=== PATIENT | female | born 1995 | race Caucasian/White ===

== ENCOUNTER → 2017-11-17 | Outpatient (CLI) | payer OTHER ==
--- NOTE | 2017-11-17 15:08 | US ---
EXAMINATION TYPE: US OB >= 14 wk fetus DATE OF EXAM: 11/17/2017 COMPARISON: None CLINICAL HISTORY: 22-year-old female Z36 Confirm Dates TECHNIQUE: Transabdominal (TA) FINDINGS: GESTATIONAL AGE / DATING Physician Established: not established Dates by LMP: (16 weeks/0 days) EDC: 05/04/2018 Dates by First Scan: this is first scan Dates by Current Scan: (16 weeks/0 days) EDC: 05/04/2018 SURVEY IUP: Single PLACENTA: Posterior PREVIA: No Previa STARR: 13.4 cm Normal CERVICAL LENGTH (transabdominal: norm > 3.0cm): 3.4 cm BIOMETRY PRESENTATION: Breech BPD: 3.3 cm 16 weeks / 2 days HC: 12.1 cm 16 weeks / 1 days AC: 10.0 cm 16 weeks / 1 days FL: 1.7 cm 15 weeks / 1 days ESTIMATED WEIGHT IN GRAMS: 129 grams ESTIMATED WEIGHT IN LBS/OZ: 0 lbs. 5 oz. WEIGHT PERCENTAGE BASED ON ESTABLISHED DATES: 18% HC/AC: 1.2 Normal FL/AC: 17% Normal HEART RATE: 156 bpm RHYTHM: Normal Breaker Layer notes: Viable IUP that correlates with LMP. Uterine contraction noted at beginning of sca n subsided by end of scan. IMPRESSION: 1. Single live intrauterine with estimated gestational age 16 weeks 0 days by LMP. Current ultrasound biometry is exactly concordant. EFW at the 18th percentile. 2. Complete survey recommended at 18-20 weeks.
== END | disposition home or self-care (01) ==
LOC: RADUSWWP 14:07
PROVIDERS: ATTEND Obstetrics & Gynecology
DX: Z36.89 Encounter for other specified antenatal screening (principal); Z3A.16 16 weeks gestation of pregnancy
CPT/HCPCS: 76805

== ENCOUNTER 2018-05-04 06:00 | Inpatient (IN) | payer OTHER ==
[2018-05-04] MEDS ORDERED: OXYTOCIN 20 UNITS/1000 ML NS 1,000 ML IV SCH (06:51)
[2018-05-04] MEDS ORDERED: TERBUTALINE 1 MG/ML VIAL SQ PRN (06:51)
[2018-05-04] MEDS ORDERED: CARBOPROST TROMETHAMINE 250 MCG/ML 1 ML AMP IM PRN (06:51)
[2018-05-04] MEDS ORDERED: METHYLERGONOVINE 0.2 MG/ML 1 ML AMP IM PRN (06:51)
[2018-05-04] MEDS ORDERED: OXYTOCIN 10 UNIT/ML 1 ML VIAL IM PRN (06:51)
[2018-05-04] MEDS ORDERED: LIDOCAINE 1% (PF) 10 MG/ML (30 ML SDV) SQ PRN (06:51)
[2018-05-04 06:59] VITALS: BMI 30.4
[2018-05-04] MEDS: LACTATED RINGERS 1,000 ML IV SCH ×2 (06:59→13:09)
[2018-05-04 07:02] LABS: Basophils % (A) 0 %; Eosinophils # (A) 0.2 k/uL (0-0.7); Eosinophils % (A) 2 %; HCT 36.6 % (34.0-46.0); Lymphocytes # (A) 2.7 k/uL (1.0-4.8); Lymphocytes % (A) 28 %; MCH 29.5 pg (25.0-35.0); MCHC 32.7 g/dL (31.0-37.0); MCV 90.4 fL (80.0-100.0); Mean Platelet Volume 9.2; Monocytes # (A) 0.6 k/uL (0-1.0); Monocytes % (A) 6 %; Neutrophils % (A) 62 %; Platelet Count 222 k/uL (150-450); RBC 4.05 m/uL (3.80-5.40); RDW 15.6 % (11.5-15.5); WBC 9.7 k/uL (3.8-10.6)
--- NOTE | 2018-05-04 07:38 | P.HPOB ---
History of Present Illness H&P Date: 05/04/18 Chief Complaint: Induction of Labor 23 year old presents at 40 weeks for induction of labor. HEr cervix is 1-2 /70/-2. She is reji irregularly. heart tones 130-135 with moderate variability and reactive. Review of Systems All systems: negative Constitutional: Denies chills, Denies fever Eyes: denies blurred vision, denies pain Ears, nose, mouth and throat: Denies headache, Denies sore throat Cardiovascular: Denies chest pain, Denies shortness of breath Respiratory: Denies cough Gastrointestinal: Denies abdominal pain, Denies diarrhea, Denies nausea, Denies vomiting Genitourinary: Denies dysuria, Denies hematuria Musculoskeletal: Denies myalgias Integumentary: Denies pruritus, Denies rash Neurological: Denies numbness, Denies weakness Psychiatric: Denies anxiety, Denies depression Endocrine: Denies fatigue, Denies weight change Past Medical History Past Medical History: No Reported History Additional Past Medical History / Comment(s): OB history: first was a vaginal delivery. THis is her second and she had had care with ne since 13 weeks. A+, abs neg, Rub Imm, RPR NR, HIV NR, Hep B neg. normal 1hr. GBS neg. History of Any Multi-Drug Resistant Organisms: None Reported Past Surgical History: Adenoidectomy, Tonsillectomy Past Anesthesia/Blood Transfusion Reactions: No Reported Reaction Past Psychological History: No Psychological Hx Reported Smoking Status: Former smoker Past Alcohol Use History: None Reported Past Drug Use History: None Reported - Past Family History Mother Additional Family Medical History / Comment(s): Depression/Bipolar Father Additional Family Medical History / Comment(s): Schizophrenia Medications and Allergies Allergies Allergy/AdvReac Type Severity Reaction Status Date / Time Penicillins Allergy Rash/Hives Verified 05/04/18 06:51 Sulfa (Sulfonamide Allergy Swelling Verified 05/04/18 06:51 Antibiotics) Exam Osteopathic Statement: *. No significant issues noted on an osteopathic structural exam other than those noted in the History and Physical/Consult. Vital Signs Temp Pulse Resp BP 05/04/18 06:53 96.6 F L 73 16 116/71 Intake and Output 05/03/18 05/04/18 05/04/18 22:59 06:59 14:59 Other: Weight 85.729 kg Heart: Regular rate and rhythm Lungs: Clear to auscultation bilaterally Abdomen: Soft, nontender Extremities: Negative Homans sign Results Result Diagrams: 05/04/18 06:50 Abnormal Lab Results - Last 24 Hours (Table) 05/04/18 Range/Units 06:50 RDW 15.6 H (11.5-15.5) % Assessment and Plan (1) Normal labor Current Visit: Yes Status: Acute Code(s): O80 - ENCOUNTER FOR FULL-TERM UNCOMPLICATED DELIVERY; Z37.9 - OUTCOME OF DELIVERY, UNSPECIFIED SNOMED Code(s ): 42030134 Plan: 1. induction of labor with amniotomy and pitocin
[2018-05-04] MEDS ORDERED: WITCH HAZEL 1 EACH MED..PAD TOPICAL PRN (16:07)
[2018-05-04] MEDS ORDERED: SIMETHICONE 80 MG CHEWABLE PO PRN (16:07)
[2018-05-04] MEDS ORDERED: diphenhydrAMINE 50 MG CAP PO PRN (16:07)
[2018-05-04] MEDS ORDERED: ZOLPIDEM 5 MG TAB PO PRN (16:07)
[2018-05-04] MEDS ORDERED: HYDROCORTISONE 2.5% RECTAL CREAM 30 GM TUBE RECTAL PRN (16:07)
[2018-05-04] MEDS ORDERED: diphenhydrAMINE 50 MG/ML 1 ML VIAL IVP PRN ×2 (16:07)
[2018-05-04] MEDS ORDERED: LANOLIN CREAM 5 GM TUBE TOPICAL PRN (16:07)
[2018-05-04] MEDS ORDERED: diphenhydrAMINE 25 MG CAP PO PRN (16:07)
[2018-05-04] MEDS ORDERED: ACETAMINOPHEN TAB 325 MG TAB PO PRN (16:07)
[2018-05-04] MEDS ORDERED: BENZOCAINE/MENTHOL SPRAY 1 GM/SPRAY AEROSOL TOPICAL PRN (16:07)
[2018-05-04] MEDS: IBUPROFEN 600 MG TAB PO PRN (20:59)
[2018-05-04] MEDS: SENNOSIDES-DOCUSATE SODIUM 1 EACH TAB PO SCH (22:41)
--- NOTE | 2018-05-05 04:47 | P.PROBDLV ---
Vaginal Delivery Note - . Vaginal Delivery Note: 23-year-old presents at 40 weeks for induction of labor. Her cervix was 1 -2 cm dilated, 70% effaced, -2 station. She is reji irregularly. heart tones 130 135 with moderate variability and reactive. Amniotomy was performed at 7:20AM and clear fluid noted. Pitocin was also started. When she was uncomfortable she did get an epidural. Her cervix was completely dilated at 1525. She pushed, and delivered a viable female infant over intact perineum under epidural anesthesia at 1536. Head delivered OA, anterior shoulder delivered gentle downward guidance followed by posterior shoulder and rest of body. Nose and mouth bulb suctioned, cord clamped and cut, placed mother 's abdomen. Apgars 9, 9, weight 7 lbs. 4 oz. Placenta delivered spontaneously , intact with three-vessel cord at 1539. Vagina, cervix, and perineum were inspected. First-degree midline laceration was repaired with 3-0 Vicryl. Estimated blood loss 200 mL. Mother and baby in stable condition.
[2018-05-05 07:50] LABS: Basophils % (A) 0 %; Eosinophils # (A) 0.2 k/uL (0-0.7); Eosinophils % (A) 2 %; HCT 34.3 % (34.0-46.0); HGB 10.6 gm/dL (11.4-16.0); Lymphocytes # (A) 3.1 k/uL (1.0-4.8); Lymphocytes % (A) 27 %; MCH 28.2 pg (25.0-35.0); MCHC 30.9 g/dL (31.0-37.0); MCV 91.4 fL (80.0-100.0); Mean Platelet Volume 9.5; Monocytes # (A) 0.5 k/uL (0-1.0); Monocytes % (A) 4 %; Neutrophils # (A) 7.5 k/uL (1.3-7.7); Neutrophils % (A) 65 %; Platelet Count 185 k/uL (150-450); RBC 3.75 m/uL (3.80-5.40); RDW 15.6 % (11.5-15.5); WBC 11.5 k/uL (3.8-10.6)
[2018-05-05] MEDS: IBUPROFEN 600 MG TAB PO PRN (08:03)
[2018-05-05] MEDS: SENNOSIDES-DOCUSATE SODIUM 1 EACH TAB PO SCH (08:04)
[2018-05-05 08:44] VITALS: RESP 18
--- NOTE | 2018-05-05 10:27 | P.DS ---
Providers Date of admission: 05/04/18 06:30 Expected date of discharge: 05/05/18 Attending physician: Brooklyn Rai Primary care physician: Stated None - Discharge Diagnosis(es) (1) Normal labor Current Visit: Yes Status: Resolved (2) Normal vaginal delivery Current Visit: Yes Status: Acute Hospital Course: Patient presented for induction of labor. She underwent normal vaginal delivery. Her post course was uncomplicated. She'll be discharged home day #1 in stable condition to follow-up with me in 6 weeks. Plan - Discharge Summary New Discharge Prescriptions: New Ibuprofen [Motrin] 600 mg PO Q6HR PRN #30 tab PRN Reason: Mild Pain Or Fever >= 100.5 Discharge Medication List Ibuprofen [Motrin] 600 mg PO Q6HR PRN #30 tab 05/05/18 [Rx] Follow up Appointment(s)/Referral(s): Brooklyn Rai DO [Doctor of Osteopathic Medicine] - 6 Weeks Discharge Disposition: HOME SELF-CARE
[2018-05-05 15:59] VITALS: BP 112/69; PULSE 78; TEMP 98.1
== END 2018-05-05 18:54 | disposition home or self-care (01) | DRG 775 ==
LOC: 4FBP 06:19 → UNDOADMIN 06:19 → 4FBP 06:30
PROVIDERS: ADMIT Obstetrics & Gynecology; ATTEND Obstetrics & Gynecology
PROC: 10E0XZZ Delivery of Products of Conception, External Approach (ICD-10-PCS; principal; 2018-05-04)
PROC: 0HQ9XZZ Repair Perineum Skin, External Approach (ICD-10-PCS; 2018-05-04)
PROC: 3E033VJ Introduction of Other Hormone into Peripheral Vein, Percutaneous Approach (ICD-10-PCS; 2018-05-04)
PROC: 10907ZC Drainage of Amniotic Fluid, Therapeutic from Products of Conception, Via Natural or Artificial Opening (ICD-10-PCS; 2018-05-04)
PROC: 00HU33Z Insertion of Infusion Device into Spinal Canal, Percutaneous Approach (ICD-10-PCS; 2018-05-04)
PROC: 3E0R3BZ Introduction of Anesthetic Agent into Spinal Canal, Percutaneous Approach (ICD-10-PCS; 2018-05-04)
DX: O99.62 Diseases of the digestive system complicating childbirth (principal); K21.9 Gastro-esophageal reflux disease without esophagitis; O70.0 First degree perineal laceration during delivery; Z37.0 Single live birth; Z3A.40 40 weeks gestation of pregnancy; Z87.891 Personal history of nicotine dependence; Z88.0 Allergy status to penicillin; Z88.2 Allergy status to sulfonamides; Z81.8 Family history of other mental and behavioral disorders
CPT/HCPCS: 85025

== ENCOUNTER 2019-05-25 14:31 | Emergency (ER) | payer OTHER ==
[2019-05-25 15:17] VITALS: BP 136/80; PULSE 75; RESP 18; TEMP 98.6
--- NOTE | 2019-05-25 17:12 | ED ---
General Adult HPI - General Chief complaint: Anxiety Stated complaint: Anxiety Time Seen by Provider: 05/25/19 16:18 Source: patient, RN notes reviewed Mode of arrival: ambulatory Limitations: no limitations - History of Present Illness Initial comments: 24-year-old female presents to the emergency department for a chief complaint of anxiety. Patient states she feels that she needs to bring up with her boyfriend because she feels he has more of a friend than a true love. States this is causing her anxiety. Denies any thoughts of harming herself or anyone else. States she thinks she needs counseling. Denies any depression. Denies any other symptoms or any s psychiatric diagnoses.Patient has no other complaints at this time including shortness of breath, chest pain, abdominal pain, nausea or vomiting, headache, or visual changes. - Related Data Previous Rx's Medication Instructions Recorded Ibuprofen [Motrin] 600 mg PO Q6HR PRN #30 tab 05/05/18 Allergies Allergy/AdvReac Type Severity Reaction Status Date / Time Penicillins Allergy Rash/Hives Verified 05/25/19 15:17 Sulfa (Sulfonamide Allergy Swelling Verified 05/25/19 15:17 Antibiotics) Review of Systems ROS Statement: Those systems with pertinent positive or pertinent negative responses have been documented in the HPI. ROS Other: All systems not noted in ROS Statement are negative. Past Medical History Past Medical History: No Reported History Additional Past Medical History / Comment(s): OB history: first was a vaginal delivery. THis is her second and she had had care with vt since 13 weeks. A+, abs neg, Rub Imm, RPR NR, HIV NR, Hep B neg. normal 1hr. GBS neg. History of Any Multi-Drug Resistant Organisms: None Reported Past Surgical History: Adenoidectomy, Tonsillectomy Past Anesthesia/Blood Transfusion Reactions: No Reported Reaction Past Psychological History: Anxiety, Depression Smoking Status: Former smoker Past Alcohol Use History: None Reported Past Drug Use History: None Reported - Past Family History Mother Additional Family Medical History / Comment(s): Depression/Bipolar Father Additional Family Medical History / Comment(s): Schizophrenia General Exam Limitations: no limitations General appearance: alert, in no apparent distress Head exam: Present: atraumatic, normocephalic, normal inspection Eye exam: Present: normal appearance, PERRL, EOMI. Absent: scleral icterus, conjunctival injection, periorbital swelling ENT exam: Present: normal exam, mucous membranes moist Neck exam: Present: normal inspection. Absent: tenderness, meningismus, lymphadenopathy Respiratory exam: Present: normal lung sounds bilaterally. Absent: respiratory distress, wheezes, rales, rhonchi, stridor Cardiovascular Exam: Present: regular rate, normal rhythm, normal heart sounds. Absent: systolic murmur, diastolic murmur, rubs, gallop, clicks Neurological exam: Present: alert, oriented X3 Psychiatric exam: Present: normal affect, normal mood. Absent: homicidal ideation, suicidal ideation Course Vital Signs 05/25/19 15:14 Temperature 98.6 F Pulse Rate 75 Respiratory 18 Rate Blood Pressure 136/80 O2 Sat by Pulse 100 Oximetry Medical Decision Making - Medical Decision Making 24-year-old female presents for anxiety because she feels she needs to break up with her boyfriend who she feels is more of a friend than a true love. Denies any thoughts of harming herself or anyone else. States she thinks she needs counseling. As I was getting referral list together patient left the emergency department. Left without receiving discharge paperwork. Disposition Clinical Impression: Situational depression Disposition: HOME SELF-CARE Condition: Good Instructions (If sedation given, give patient instructions): Generalized Anxiety Disorder (ED) Additional Instructions: Please follow up with primary care in 1-2 days. Follow-up with referrals given to you. Return to the emergency department if you have any worsening symptoms. Is patient prescribed a controlled substance at d/c from ED?: No Referrals: Pricila Cerrato MD [Primary Care Provider] - 1-2 days Time of Disposition: 17:12
== END 2019-05-25 17:00 | disposition home or self-care (01) ==
LOC: EC 14:31
DX: F43.21 Adjustment disorder with depressed mood (principal); Z87.891 Personal history of nicotine dependence; Z88.0 Allergy status to penicillin; Z88.2 Allergy status to sulfonamides; Z81.8 Family history of other mental and behavioral disorders
CPT/HCPCS: 99283

== ENCOUNTER 2019-06-02 14:50 | Inpatient (IN) | payer OTHER ==
--- NOTE | 2019-06-02 15:54 | ED ---
Psych HPI - General Source: patient, family, RN notes reviewed, old records reviewed Mode of arrival: ambulatory <Gabriela Brian - Last Filed: 06/02/19 17:21> <Evan Rebolledo - Last Filed: 06/02/19 20:56> - General Chief Complaint: Psychiatric Symptoms Stated Complaint: Mental health Time Seen by Provider: 06/02/19 15:00 - History of Present Illness Initial Comments: Patient is a 24-year-old female presents emergency department today with her child protective services worker remove the children from her custody as of recently. Patient has concern for jordon, and abnormal behavior. The patient's CPS worker states that she has had some trauma throughout her life. A hand caregiver states that she has been having tangential conversations and unable to comprehend the fact that she is losing her kids. Patient is quite anxious. She was here in the emergency department a few days ago for severe anxiety. Patient is also quite focused on trying to figure out how she can have a relationship with her children's father. (Gabriela Brian) - Related Data Home Medications Medication Instructions Recorded Confirmed Albuterol Sulfate [Proair Hfa] 2 puff INHALATION RT-Q6H PRN 06/02/19 06/02/19 Allergies Allergy/AdvReac Type Severity Reaction Status Date / Time Penicillins Allergy Rash/Hives Verified 06/02/19 15:16 Sulfa (Sulfonamide Allergy Swelling Verified 06/02/19 15:16 Antibiotics) Review of Systems ROS Other: All systems not noted in ROS Statement are negative. <Gabriela Brian - Last Filed: 06/02/19 17:21> ROS Other: All systems not noted in ROS Statement are negative. <Evan Rebolledo - Last Filed: 06/02/19 20:56> ROS Statement: Those systems with pertinent positive or pertinent negative responses have been documented in the HPI. Past Medical History Past Medical History: No Reported History Additional Past Medical History / Comment(s): OB history: first was a vaginal delivery. THis is her second and she had had care with me since 13 weeks. A+, abs neg, Rub Imm, RPR NR, HIV NR, Hep B neg. normal 1hr. GBS neg. History of Any Multi-Drug Resistant Organisms: None Reported Past Surgical History: Adenoidectomy, Tonsillectomy Past Anesthesia/Blood Transfusion Reactions: No Reported Reaction Past Psychological History: Anxiety, Depression Smoking Status: Former smoker Past Alcohol Use History: None Reported Past Drug Use History: None Reported - Past Family History Mother Additional Family Medical History / Comment(s): Depression/Bipolar Father Additional Family Medical History / Comment(s): Schizophrenia <Gabriela Brian - Last Filed: 06/02/19 17:21> General Exam Limitations: no limitations General appearance: alert, in no apparent distress Head exam: Present: atraumatic, normocephalic, normal inspection Eye exam: Present: normal appearance, PERRL, EOMI. Absent: scleral icterus, conjunctival injection, periorbital swelling ENT exam: Present: normal exam, mucous membranes moist Neck exam: Present: normal inspection. Absent: tenderness, meningismus, lymphadenopathy Respiratory exam: Present: normal lung sounds bilaterally. Absent: respiratory distress, wheezes, rales, rhonchi, stridor Cardiovascular Exam: Present: regular rate, normal rhythm, normal heart sounds. Absent: systolic murmur, diastolic murmur, rubs, gallop, clicks Extremities exam: Present: normal inspection, full ROM, normal capillary refill. Absent: tenderness, pedal edema, joint swelling, calf tenderness Back exam: Present: normal inspection, full ROM Neurological exam: Present: alert, oriented X3, CN II-XII intact Psychiatric exam: Present: anxious, manic. Absent: normal mood Skin exam: Present: warm, dry, intact, normal color. Absent: rash <Gabriela Brian - Last Filed: 06/02/19 17:21> - General Exam Comments Initial Comments: 24-year-old female. Alert and oriented 3. Patient is eloquent speech, hyperverbal. (Gabriela Brian) Course Vital Signs 06/02/19 06/02/19 14:51 18:59 Temperature 98 F Pulse Rate 104 H 90 Respiratory 20 18 Rate Blood Pressure 134/77 117/67 O2 Sat by Pulse 99 99 Oximetry Medical Decision Making <Gabriela Brian - Last Filed: 06/02/19 17:21> <Evan Rebolledo - Last Filed: 06/02/19 20:56> - Medical Decision Making This is a 24-year-old female presents today for chief complaint of needing a psychiatric eval. Patient was brought here by her CPS worker. Patient has quite tangential conversations, hyperverbal. She denies any suicidal or homicidal ideations. Patient is medically clear at this time for EPS evaluation. Patient's case was discussed with Dr. Rebolledo, whom Will be taking over care of 5:30 PM. (Gabriela Brian) 24 female who will be admitted for psychiatric evaluation and treatment (Evan Rebolledo) - Lab Data Lab Results 06/02/19 Range/Units 15:07 Urine Opiates Screen Not Detected (NotDetected) Ur Oxycodone Screen Not Detected (NotDetected) Urine Methadone Screen Not Detected (NotDetected) Ur Propoxyphene Screen Not Detected (NotDetected) Ur Barbiturates Screen Not Detected (NotDetected) U Tricyclic Antidepress Not Detected (NotDetected) Ur Phencyclidine Scrn Not Detected (NotDetected) Ur Amphetamines Screen Not Detected (NotDetected) U Methamphetamines Scrn Not Detected (NotDetected) U Benzodiazepines Scrn Not Detected (NotDetected) Urine Cocaine Screen Not Detected (NotDetected) U Marijuana (THC) Screen Detected H (NotDetected) Disposition <Gabriela Brian - Last Filed: 06/02/19 17:21> Is patient prescribed a controlled substance at d/c from ED?: No <Evan Rebolledo - Last Filed: 06/02/19 20:56> Clinical Impression: Situational depression, Acute psychosis Disposition: TRANSFER TO PSYCH HOSP/UNIT Condition: Fair
[2019-06-02 16:45] LABS: Amphetamine Screen,Urine Not Detected (NotDetected); Barbiturate Screen,Urine Not Detected (NotDetected); Benzodiazepines Screen,Urine Not Detected (NotDetected); Cocaine Screen,Urine Not Detected (NotDetected); Methadone Screen, Urine Not Detected (NotDetected); Opiate Screen,Urine Not Detected (NotDetected); Oxycodone Screen, Urine Not Detected (NotDetected); Phencyclidine Screen,Urine Not Detected (NotDetected); Tricyclic Antidepressant,Urine Not Detected (NotDetected); Urn Cannabinoid Scrn Detected (NotDetected)
[2019-06-02] MEDS ORDERED: ZIPRASIDONE 20 MG VIAL IM PRN (20:30)
[2019-06-02] MEDS ORDERED: MAG HYDROX/AL HYDROX/SIMETH 30 ML CUP PO PRN (20:30)
[2019-06-03 08:16] LABS: Basophils # (A) 0.1 k/uL (0-0.2); Basophils % (A) 1 %; Eosinophils # (A) 0.5 k/uL (0-0.7); Eosinophils % (A) 4 %; HCT 44.2 % (34.0-46.0); HGB 14.5 gm/dL (11.4-16.0); Lymphocytes # (A) 3.1 k/uL (1.0-4.8); Lymphocytes % (A) 31 %; MCH 30.6 pg (25.0-35.0); MCHC 32.9 g/dL (31.0-37.0); MCV 92.9 fL (80.0-100.0); Mean Platelet Volume 8.9; Monocytes # (A) 0.5 k/uL (0-1.0); Monocytes % (A) 4 %; Neutrophils # (A) 5.9 k/uL (1.3-7.7); Neutrophils % (A) 59 %; Platelet Count 279 k/uL (150-450); RBC 4.76 m/uL (3.80-5.40)
[2019-06-03] MEDS: NICOTINE 14MG/24HR PATCH TRANSDERM SCH (08:40)
[2019-06-03 08:52] LABS: ALT 22 U/L (9-52); AST 21 U/L (14-36); African American GFR (CKD) >90 (>60 ml/min/1.73 sqM); Albumin 4.3 g/dL (3.5-5.0); Alkaline Phosphatase 50 U/L (38-126); Anion Gap 10 mmol/L; Blood Urea Nitrogen 7 mg/dL (7-17); Calcium 10.1 mg/dL (8.4-10.2); Carbon Dioxide 25 mmol/L (22-30); Chloride 108 mmol/L (98-107); Cholesterol 124 mg/dL (<200); Glucose 83 mg/dL (74-99); HDL Cholesterol 57 mg/dL (40-60); LDL Cholesterol,Calculated 52 mg/dL (0-99); Potassium 4.2 mmol/L (3.5-5.1); Sodium 143 mmol/L (137-145); Total Bilirubin 0.3 mg/dL (0.2-1.3); Total Protein 7.1 g/dL (6.3-8.2); Triglycerides 73 mg/dL (<150)
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
[2019-06-03] MEDS ORDERED: ALBUTEROL INHALER 60 PUFF/8 GM INHALER INHALATION PRN (13:10)
--- NOTE | 2019-06-03 13:12 | P.CONS ---
History of Present Illness - Reason for Consult Medical clearance, history of asthma - History of Present Illness 6-year-old cousin female was admitted for his Crohn's affective disorder . Patient denied any fever chills nausea vomiting abdominal pain. Patient does smoke occasionally denied any shortness of breath patient appears to have mild intermittent asthma for which she uses albuterol as needed. Review of Systems REVIEW OF SYSTEMS: CONSTITUTIONAL: No fever, no malaise, no fatigue. HEENT: No recent visual problems or hearing problems. Denied any sore throat. CARDIOVASCULAR: No chest pain, orthopnea, PND, no palpitations, no syncope. PULMONARY: No shortness of breath, no cough, no hemoptysis. GASTROINTESTINAL: No diarrhea, no nausea, no vomiting, no abdominal pain. NEUROLOGICAL: No headaches, no weakness, no numbness. HEMATOLOGICAL: Denies any bleeding or petechiae. GENITOURINARY: Denies any burning micturition, frequency, or urgency. MUSCULOSKELETAL/RHEUMATOLOGICAL: Denies any joint pain, swelling, or any muscle pain. ENDOCRINE: Denies any polyuria or polydipsia. The rest of the 14-point review of systems is negative. Past Medical History Past Medical History: No Reported History Additional Past Medical History / Comment(s): OB history: first was a vaginal delivery. THis is her second and she had had care with mo since 13 weeks. A+, abs neg, Rub Imm, RPR NR, HIV NR, Hep B neg. normal 1hr. GBS neg. History of Any Multi-Drug Resistant Organisms: None Reported Past Surgical History: Adenoidectomy, Tonsillectomy Past Anesthesia/Blood Transfusion Reactions: No Reported Reaction Past Psychological History: Anxiety, Depression Smoking Status: Former smoker Past Alcohol Use History: None Reported Past Drug Use History: None Reported - Past Family History Mother Additional Family Medical History / Comment(s): Depression/Bipolar Father Additional Family Medical History / Comment(s): Schizophrenia Medications and Allergies Home Medications Medication Instructions Recorded Confirmed Type Albuterol Sulfate [Proair Hfa] 2 puff INHALATION [id number] PRN 06/02/19 06/02/19 History Allergies Allergy/AdvReac Type Severity Reaction Status Date / Time Penicillins Allergy Rash/Hives Verified 06/02/19 15:16 Sulfa (Sulfonamide Allergy Swelling Verified 06/02/19 15:16 Antibiotics) Physical Exam Vitals: Vital Signs Temp Pulse Pulse Resp BP BP Pulse Ox 06/03/19 06:49 98 F 77 16 117/68 06/02/19 21:43 97.1 F L 70 18 136/91 99 06/02/19 18:59 90 18 117/67 99 06/02/19 14:51 98 F 104 H 20 134/77 99 Intake and Output 06/02/19 06/03/19 06/03/19 22:59 06:59 14:59 Other: Weight 70.806 kg PHYSICAL EXAMINATION: GENERAL: The patient is alert and oriented x3, not in any acute distress. Well developed, well nourished. HEENT: Pupils are round and equally reacting to light. EOMI. No scleral icterus. No conjunctival pallor. Normocephalic, atraumatic. No pharyngeal erythema. No thyromegaly. CARDIOVASCULAR: S1 and S2 present. No murmurs, rubs, or gallops. PULMONARY: Chest is clear to auscultation, no wheezing or crackles. ABDOMEN: Soft, nontender, nondistended, normoactive bowel sounds. No palpable organomegaly. MUSCULOSKELETAL: No joint swelling or deformity. EXTREMITIES: No cyanosis, clubbing, or pedal edema. NEUROLOGICAL: Gross neurological examination did not reveal any focal deficits. SKIN: No rashes. Results CBC & Chem 7: 06/03/19 07:28 06/03/19 07:28 Labs: Abnormal Lab Results - Last 24 Hours (Table) 06/02/19 06/03/19 Range/Units 15:07 07:28 Chloride 108 H (98-107) mmol/L U Marijuana (THC) Screen Detected H (NotDetected) Assessment and Plan Plan: Mild intermittent asthma without any acute exacerbation: Continue with albuterol on as-needed basis. -Nicotine abuse: Counseling was provided -Schizoaffective disorder, and management as per primary service.
[2019-06-03] MEDS: ARIPiprazole 5 MG TAB PO SCH (14:04)
[2019-06-03 21:03] LABS: Hemoglobin A1C 5.3 % (4.0-6.0)
[2019-06-04] MEDS: NICOTINE 14MG/24HR PATCH TRANSDERM SCH (09:38)
[2019-06-04] MEDS: LORazepam 1 MG TAB PO PRN (09:41)
[2019-06-04] MEDS: ARIPiprazole 5 MG TAB PO SCH (09:42)
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
[2019-06-05] MEDS: NICOTINE 14MG/24HR PATCH TRANSDERM SCH ×2 (08:06→20:52)
[2019-06-05] MEDS: ARIPiprazole 5 MG TAB PO SCH ×2 (08:07→10:20)
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
[2019-06-06] MEDS: NICOTINE 14MG/24HR PATCH TRANSDERM SCH (09:16)
[2019-06-06] MEDS: ARIPiprazole 5 MG TAB PO SCH (09:18)
--- NOTE | 2019-06-06 11:51 | P.PN ---
Progress Note - Text Interval history: The patient is found in group she follows me to an interview room. She describes a variety of emotions today. She identifies her mood mainly as being "melancholy". She has been making an effort to attend group. She slept approximate 4 hours last evening. Appetite stable. She complied with medication yesterday she has not taken the Abilify at this morning. We discussed this in detail she describes it made her feel tired so we agreed to move it to at bedtime dosing. Mental status exam: The patient is alert she demonstrates adequate hygiene grooming she is dressed in her own clothing. She is carrying a Bible today. Eye contact is appropriate speech is fluent spontaneous she is verbose. She continues to demonstrate a tangential thought process and loose associations. During our conversation today she is very focused on moravian. She demonstrates some lability of affect including tearfulness. She has little insight into her thought disorganization. Judgment is impacted. She demonstrates no verbal or physical aggressiveness. She is demonstrating no involuntary repetitive movements. She denies having any suicidal or homicidal thoughts. Plan: The patient continues to demonstrate significant disorganization of her thoughts. She may have delusional thought content as well. We will move the Abilify to a bedtime dosing and increased to 10 mg. If she is not cooperative with this medication we will pursue a petition and clinical certificate and request court ordered treatment. The patient's symptoms do seem to impact her psychosocial functioning. She requires continued psychiatric hospitalization. Vital signs reviewed. She is encouraged to continue participating in the milieu.
[2019-06-06] MEDS ORDERED: ARIPiprazole 10 MG TAB PO SCH (21:00)
[2019-06-07] MEDS: NICOTINE 14MG/24HR PATCH TRANSDERM SCH (09:30)
--- NOTE | 2019-06-07 11:14 | P.PN ---
Progress Note - Text Interval history: The patient is found in the hallway she follows me to an interview room. She indicates her mood is okay. During treatment team meeting staff indicate the patient continues to be quite disorganized in conversation and during group participation. It is recorded she slept approximate 5 hours. Appetite stable. She has no questions or concerns regarding her medication. Mental status exam: The patient is an alert female appearing her stated age. Hygiene grooming are adequate. She is dressed in her own clothing. Speech is fluent spontaneous she is verbose. She continues to spontaneously demonstrate tangential thinking and loose associations. She continues to be religiously focused. She recites a number of clichs about being healthy and making good choices. Insight and judgment are limited. She demonstrates no verbal or physical aggressiveness. Affect remains constricted to bland throughout the session. She demonstrates no involuntary repetitive movements. Plan: The patient will continue on the Abilify we will increase the dose to 15 mg at bedtime. She continues to demonstrate significant disorganization of thought. She requires continued psychiatric hospitalization. Vital signs reviewed. She is encouraged to continue participating in the milieu.
[2019-06-07] MEDS: ARIPiprazole 15 MG TAB PO SCH (20:47)
[2019-06-08] MEDS: NICOTINE 14MG/24HR PATCH TRANSDERM SCH (08:18)
[2019-06-08 10:34] LABS: Appearance,Urine Cloudy (Clear); Bilirubin,Urine Negative (Negative); Blood,Urine Negative (Negative); Budding Yeast,Urine Few /hpf; Color,Urine Light Yellow; Glucose,Urine (UA) Negative (Negative); Ketones,Urine Negative (Negative); Leukocyte Esterase,Urine Large (Negative); Mucus,Urine Rare /hpf; Nitrite,Urine Negative (Negative); Protein,Urine Negative (Negative); Specific Gravity,Urine 1.009 (1.001-1.035); Squamous Epithelial Cell,Urine 2 /hpf (0-4); Urobilinogen,Urine <2.0 mg/dL (<2.0); WBC,Urine 163 /hpf (0-5)
--- NOTE | 2019-06-08 11:30 | P.PN ---
Progress Note - Text Interval history: The patient is found in group she follows me to an interview room. She refused her Abilify last evening. She adamantly states that she does not need any medication. He states that we are just forcing medications on people. She accuses me of knowing that she doesn't need a medicine but I'm forcing her to take one anyway. She makes numerous hoahaoism references. The patient was becoming agitated and the session needed to be terminated. Mental status exam: The patient is alert she is dressed in her own clothing eye contact is appropriate speech is fluent spontaneous she is pressured. She continues to demonstrate a tangential thought process and loose associations. During our discussion today she revealed paranoid thinking. She described her concerns that we have all ulterior motives. Her affect is much more irritable today. She make some derogatory statements directed towards myself. Insight and judgment are poor. She demonstrates no involuntary repetitive movements. He continues to carry a Bible his several pages placed inside of it. She moves her belongings around on the table throughout the session. Plan: Continue disorganization of thoughts with more evidence of psychosis today. We will continue to offer the Abilify. We will complete a petition and to clinical certificate's and will request evaluation from probate Court as we pursue a treatment order. Vital signs reviewed. She requires continued psychiatric hospitalization.
[2019-06-08] MEDS: ARIPiprazole 15 MG TAB PO SCH (21:32)
[2019-06-08] MEDS: ACETAMINOPHEN TAB 325 MG TAB PO PRN (21:32)
[2019-06-09] MEDS: NICOTINE 14MG/24HR PATCH TRANSDERM SCH ×2 (08:40→18:53)
--- NOTE | 2019-06-09 10:07 | P.PN ---
Progress Note - Text Interval history: The patient is found in her room she follows me to an interview room. She states that she spoke to her father and he told her she should comply with treatment. She continues to verbalize her opinion that she does not need medication and this is how she is. For numerous minutes she spoke in a tangential fashion about stressors precipitating this admission. Staff reported she slept 6 hours. It appears she complied with the Abilify last night. Mental status exam: The patient is alert she is dressed in her own clothing which is the same as yesterday. She has a disheveled appearance. She has a staring eye contact. Overall her affect is irritable. She spontaneously demonstrates tangential thinking and loose associations. She expresses paranoid thinking. She reports that she perceives anger from me. She yells "what am I doing wrong". She was difficult to disengage at the end of our session and had to be redirected verbally. Insight and judgment are impaired. She demonstrated no physical aggressiveness. She demonstrates no involuntary repetitive movements. Plan: The patient continues to demonstrate disorganization of thought as noted as well as some paranoid thought content. She did comply with the Abilify last evening not the night before. We have completed a petition and clinical certi ficate's. We will monitor her for safety and encourage full participation in the milieu.
[2019-06-09] MEDS: ARIPiprazole 15 MG TAB PO SCH (21:04)
[2019-06-10] MEDS: NICOTINE 14MG/24HR PATCH TRANSDERM SCH ×2 (08:21→10:43)
--- NOTE | 2019-06-10 12:24 | P.PN ---
Progress Note - Text Interval history: The patient's found in her room. She has found reading a book to herself out loud. She follows me to an interview room. She states her mood is good. She complied with the Abilify again last evening. She has been selectively attending groups. Staff reported she slept 6 hours. Mental status exam: The patient is alert she is dressed in the same clothing is last 3 days. Hygiene appears adequate. Speech is fluent and spontaneous nonpressured. She denies having any suicidal or homicidal ideation intent or plan. She continues to demonstrate a disorganized thought process she is tangential she demonstrates loose associations. She likely continues to have a paranoid thought content. She demonstrates no verbal or physical aggressiveness. She demonstrates no involuntary repetitive movements. Insight and judgment limited. Plan: The patient will continue on her current psychotropic medication. We will consider titrating the Abilify further. We will monitor for safety. She is encouraged to participate fully in the milieu. Vital signs reviewed. She requires continued psychiatric hospitalization for evaluation and treatment.
[2019-06-10] MEDS: ARIPiprazole 15 MG TAB PO SCH (20:21)
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
[2019-06-11] MEDS: ARIPiprazole 15 MG TAB PO SCH (20:13)
[2019-06-11] MEDS: MAGNESIUM HYDROXIDE 2,400 MG/10 ML CUP PO PRN (20:14)
[2019-06-12] MEDS: NICOTINE 14MG/24HR PATCH TRANSDERM SCH (08:25)
--- NOTE | 2019-06-12 09:46 | P.PN ---
Progress Note - Text Interval history: The patient is found in her room she follows me to an interview room. Upon approaching her room she is singing loudly to herself specifically a nursery rhymes. She had just completed her deferral conference. Staff reported the patient was quite disorganized and labile in the deferral conference. We reviewed her current medications. She states she is amenable to having us change them "however you want". Mental status exam: The patient is alert she is dressed in her own clothing. Hygiene grooming adequate. Eye contact is staring in nature. She has a continued disorganized thought process. She continues to demonstrate tangential thinking and loose associations. She demonstrates affect lability today. This will range from smiling and laughter to tears. She uses sarcasm frequently throughout the session. She denies having any suicidal or homicidal ideation. She endorses no auditory or visual hallucination she is endorsing no specific delusions however there is likely some residual paranoid thinking. She demonstrates no verbal or physical aggressiveness. Insight and judgment are impaired. Plan: Presumed symptoms of bipolar disorder manic with psychosis. Continue Abilify she is requesting a take that earlier in the day. We will initiate Depakote ER 750 mg at bedtime. We are adding the Depakote as he Abilify has not demonstrated sufficient efficacy at this time and we continue to see instability of mood. Baseline liver enzymes within normal limits. Vital signs reviewed. We will continue to monitor for safety.
[2019-06-12] MEDS: ARIPiprazole 15 MG TAB PO SCH ×2 (17:35→21:19)
[2019-06-12] MEDS: DIVALPROEX ER 250 MG TAB.ER.24H PO SCH (21:43)
--- NOTE | 2019-06-13 09:27 | P.PN ---
Progress Note - Text Interval history: The patient is found in the hallway at my office door. She indicates that she wants to speak. Upon approaching her she was reading from the Bible loudly. She indicates that she refused the Depakote. She states that she does not need medication. She states that I know nothing is wrong with her and she is being held here for no reason. She accuses us of prescribing medicines so that we can bill her insurance more money. She goes on to make several other disorganized statements. Mental status exam: The patient is alert she is agitated. She remained seated in the chair. She has staring eye contact. Speech is fluent spontaneous pressured at times. She demonstrates tangential thinking and loose associatio ns. She describes paranoid and persecutory thinking. She was verbally redirectable she demonstrated no physical aggressiveness. Insight and judgment are significantly impaired. She is demonstrating no involuntary repetitive movements. She remains oriented to person place and date. She denies having any suicidal or homicidal ideation. Plan: The patient remains acutely symptomatic. She refused the Depakote last evening. She indicates she does not want to take any further medication. We will go ahead and ask for a demand for hearing to obtain a treatment order. The patient remains acutely symptomatic enough that she cannot be transitioned to a lesser level of care. She requires continued psychiatric hospitalization for safety reasons. Vital signs reviewed.
[2019-06-13] MEDS: NICOTINE 14MG/24HR PATCH TRANSDERM SCH (09:46)
[2019-06-13] MEDS: ARIPiprazole 15 MG TAB PO SCH ×2 (10:27→15:51)
[2019-06-13] MEDS: LORazepam 1 MG TAB PO PRN (15:51)
[2019-06-13] MEDS: DIVALPROEX ER 250 MG TAB.ER.24H PO SCH (20:31)
[2019-06-14] MEDS: NICOTINE 14MG/24HR PATCH TRANSDERM SCH (08:10)
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
[2019-06-14 15:24] VITALS: BMI 25.6
[2019-06-14] MEDS: ARIPiprazole 15 MG TAB PO SCH (16:35)
[2019-06-14] MEDS: DIVALPROEX ER 250 MG TAB.ER.24H PO SCH (20:44)
[2019-06-15] MEDS: NICOTINE 14MG/24HR PATCH TRANSDERM SCH (08:49)
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
[2019-06-15] MEDS: ARIPiprazole 15 MG TAB PO SCH (16:32)
[2019-06-15] MEDS: ACETAMINOPHEN TAB 325 MG TAB PO PRN (18:50)
[2019-06-15] MEDS: DIVALPROEX ER 250 MG TAB.ER.24H PO SCH (21:00)
[2019-06-16] MEDS: MAGNESIUM HYDROXIDE 2,400 MG/10 ML CUP PO PRN (06:34)
[2019-06-16] MEDS: NICOTINE 14MG/24HR PATCH TRANSDERM SCH (08:47)
--- NOTE | 2019-06-16 10:48 | P.PN ---
Progress Note - Text Interval history: The patient is found in the hallway she follows me to an interview room. She indicates that she continues to be frustrated that she is still here on the mental health unit. She continues to express that she does not need psychotropic medication but she is complying now just to get released. She continues to demonstrate a disorganized thought process as reported by staff. She slept approximately 5 hours last evening. Mental status exam: The patient is alert she seated calmly in the chair. Eye contact is intermittent. Speech is fluent spontaneous nonpressured. She demonstrates a disorganized thought process and demonstrates a labile affect. She continues to be religiously focused. She reports no suicidal or homicidal ideation. She lacks insight into her current presentation. Judgment is subsequently impacted. She demonstrates no verbal or physical aggressiveness during the session. Staff reported she has been verbally irritable in the last 24 hours. Plan: The patient will continue on the Abilify and Depakote ER. We will plan to titrate the Abilify further. We will obtain a Depakote level over the weekend. Continue monitoring her for safety. She requires continued psychiatric hospitalization. Vital signs reviewed.
[2019-06-16] MEDS ORDERED: POLYETHYLENE GLYCOL 3350 17 GM POWD.PACK PO STA (12:13)
[2019-06-16] MEDS: ARIPiprazole 15 MG TAB PO SCH (16:24)
[2019-06-16] MEDS: DIVALPROEX ER 250 MG TAB.ER.24H PO SCH (21:07)
[2019-06-16] MEDS: ACETAMINOPHEN TAB 325 MG TAB PO PRN (21:40)
[2019-06-17] MEDS: NICOTINE 14MG/24HR PATCH TRANSDERM SCH (09:02)
[2019-06-17] MEDS: ARIPiprazole 15 MG TAB PO SCH (17:52)
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
[2019-06-17] MEDS: DIVALPROEX ER 250 MG TAB.ER.24H PO SCH (20:44)
[2019-06-18] MEDS: NICOTINE 14MG/24HR PATCH TRANSDERM SCH (09:03)
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
[2019-06-18] MEDS: ARIPiprazole 15 MG TAB PO SCH (17:15)
[2019-06-18] MEDS: DIVALPROEX ER 250 MG TAB.ER.24H PO SCH (20:54)
[2019-06-19] MEDS: NICOTINE 14MG/24HR PATCH TRANSDERM SCH (08:54)
--- NOTE | 2019-06-19 11:04 | P.PN ---
Progress Note - Text Interval history: The patient's found at the manager front she follows me to an interview room. She indicates her mood is frustrated. She states that she misses her children. She feels that she is ready to get out of here and go live life. She then spontaneously states she is happy and then begins crying. She apologizes for crying. She states that she is trying to go along with our recommendations but does not feel she needs medication. Depakote level result was reviewed is within normal limits. During treatment team meeting staff report that the patient has demonstrated some periods with more organization of thought. There continues to be evidence of thought disorganization however. Mental status exam: The patient is alert she is dressed in her own clothing hygiene grooming adequate. Eye contact is intermittent. She is verbose she has spontaneous speech is not pressured. She demonstrates lability of affect still. There is still some tangential thinking present. Insight and judgment slowly improving but not adequate for discharge at this time. She is reporting no auditory or visual hallucinations or specific delusions. There may be some residual paranoid thinking. She demonstrates no verbal or physical aggressiveness. She demonstrates no involuntary repetitive movements. Plan: The patient will continue on her current psychotropic medications. Hopefully we are hearing of some mild improvement in terms of thought organization. Her full court hearing is scheduled for Wednesday. We will monitor her for safety and encourage full participation in the milieu. Vital signs reviewed.
[2019-06-19] MEDS: LORazepam 1 MG TAB PO PRN (12:45)
[2019-06-19] MEDS: ARIPiprazole 15 MG TAB PO SCH (16:56)
[2019-06-19] MEDS: DIVALPROEX ER 250 MG TAB.ER.24H PO SCH (21:04)
[2019-06-19] MEDS: MAGNESIUM HYDROXIDE 2,400 MG/10 ML CUP PO PRN (21:04)
[2019-06-20] MEDS: NICOTINE 14MG/24HR PATCH TRANSDERM SCH (07:55)
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
[2019-06-20] MEDS: ARIPiprazole 15 MG TAB PO SCH (16:10)
[2019-06-20] MEDS: DIVALPROEX ER 250 MG TAB.ER.24H PO SCH (20:19)
[2019-06-21] MEDS ORDERED: LORazepam 1 MG TAB ONE (00:57)
[2019-06-21] MEDS ORDERED: ZIPRASIDONE 20 MG CAP ONE (00:57)
[2019-06-21] MEDS: NICOTINE 14MG/24HR PATCH TRANSDERM SCH (08:47)
--- NOTE | 2019-06-21 10:12 | P.PN ---
Progress Note - Text Interval history: The patient is found in her room she is speaking with peers that are standing in her doorway. She follows me to an interview room. She brings a letter that she has written for the executive officer to hear regarding her hospitalization and desire to have her children back. She read this letter aloud during our interaction. She remains compliant with her psychotropic medication. She reports having difficulty sleeping last night but staff reported she slept 7 hours. She states that she is willing to continue complying with medication but would like to be discharged as soon as possible. It appears that there is a meeting arranged for tomorrow morning involving social work and the patient's CPS worker at 9 AM. The patient does have a court hearing today she has no questions regarding that proceeding. Mental status exam: The patient is alert she is directable she was calm. She reports no suicidal or homicidal thoughts. She is endorsing no auditory or visual hallucinations. She reports no specific delusions. Again there may be some residual paranoid thinking. She is making an effort to organize her thought process more. She does catch herself during the session twice when she notices that she is not staying on topic. She demonstrates no verbal or physical aggressiveness. Affect is constricted throughout the session. She demonstrates no involuntary repetitive movements. Insight and judgment improving. Plan: The patient will continue on her current psychotropic medication. She has her court hearing this afternoon. She has a meeting with social work and her CPS worker tomorrow morning. We will discuss her progress during treatment team meeting today. We will continue to monitor her for safety and encourage full participation in the milieu.
[2019-06-21] MEDS: ARIPiprazole 15 MG TAB PO SCH (18:29)
[2019-06-21] MEDS: LORazepam 1 MG TAB PO PRN (21:25)
[2019-06-21] MEDS: DIVALPROEX ER 250 MG TAB.ER.24H PO SCH (21:25)
[2019-06-22] MEDS: NICOTINE 14MG/24HR PATCH TRANSDERM SCH (08:49)
--- NOTE | 2019-06-22 11:20 | P.PN ---
Progress Note - Text Interval history: The patient is found in her room she follows me to an interview room. Staff report that the patient continues to demonstrate affect lability. She was quite tearful during her court hearing yesterday. She was scheduled to meet with her CPS worker this morning but that was canceled and it is rescheduled for tomorrow. The patient continues to assert that she doesn't need medication but she is willing to comply with it as she now knows that she is on a court order. We discussed titrating the Abilify further. Mental status exam: The patient is alert she is dressed in her own clothing hygiene grooming adequate. Eye contact is appropriate. She is mildly argumentative at times but is easily redirected she demonstrates no verbal or physical aggressiveness. She again demonstrates some affect lability becoming quickly tearful. There is times where she is overly dramatic and providing an explanation. She is reporting no suicidal or homicidal thoughts. She endorses no symptoms of psychosis however it's very likely that she continues to have paranoid and persecutory thinking. Thought process continues to be tangential at times. Insight and judgment have improved during the admission but still are impaired. Plan: The patient will continue on her current psychotropic medications we will titrate the Abilify to 20 mg in the evening. We will monitor her for safety and encourage participation in the milieu. The patient is showing slow improvement in terms of her mood disorder and psychosis. Vital signs reviewed.
[2019-06-22] MEDS: LORazepam 1 MG TAB PO PRN (19:20)
[2019-06-22] MEDS: DIVALPROEX ER 250 MG TAB.ER.24H PO SCH (20:58)
[2019-06-23] MEDS: NICOTINE 14MG/24HR PATCH TRANSDERM SCH (09:42)
--- NOTE | 2019-06-23 11:12 | P.PN ---
Progress Note - Text Interval history: The patient is found in the hallway she follows me to an interview room. She requests that a nurse be present during our interaction. She just finished participating in a meeting with social work and her child protective services worker that lasted about an hour. Social work stated that the patient was fairly expressive at first but then was able to collect herself and appropriately participate in the remainder of the session. The patient had several medication questions those were addressed. We discussed transitioning her to [facility]. We discussed that if she continues to demonstrate sufficient progress through the weekend she may be appropriate for discharge as soon as Wednesday or Wednesday. Mental status exam: The patient is alert she is dressed in her own clothing hygiene grooming adequate. Eye contact is appropriate. Speech is fluent spontaneous nonpressured. She is mildly intrusive in conversation. Thought process was more organized during our interaction. She continues to state that she doesn't agree with needing medication but also states that she will comply with that as she is on a court order. She is reporting no suicidal or homicidal ideation intent or plan. She is endorsing no auditory or visual hallucinations or any specific delusions. She may still be experiencing some delusional thought that she's not reporting. Overall she is much improved from time of admission. Insight and judgment improving. She is oriented to person place and date. Plan: The patient will continue on her current medication. We will continue to evaluate her for safety. If she demonstrates sufficient clinical stability/progress we will consider discharge as soon as Wednesday or Wednesday. We will plan to transition to the [facility]. Vital signs reviewed.
[2019-06-23] MEDS: DIVALPROEX ER 250 MG TAB.ER.24H PO SCH (20:37)
[2019-06-23] MEDS: LORazepam 1 MG TAB PO PRN (20:37)
[2019-06-24] MEDS: NICOTINE 14MG/24HR PATCH TRANSDERM SCH (07:59)
--- NOTE | 2019-06-24 10:25 | P.PN ---
Progress Note - Text Progress Note Date: 06/24/19 Interval history: The patient was seen taking part in group and was agreeable to be to specifications writer. Patient appeared to be tangential/circumstantial in her thought process however was able to speak about her hospitalization and her wanting to be with her children. Patient spoke about going up in [place] and moving to [place]. Patient also states that with regards to her Abilify she is okay with her dose however does feel more anxiety at night and is learning how to handle it. She also claims that she respects Dr. Tejeda's decision whether she needs to go on a long-acting injection or not. She states that she slept well last night denies any other complaints and this been going to groups and interacting well with others. At this time patient denies any suicidal or homicidal ideations intent or plan. Denies any Auditory or visual hallucinations. Patient denies any side effects from the medications and has been compliant with meds. Mental status exam: General Appearance: Patient appears to be stated age is alert, pleasant, and cooperative. Behavior: No agitated behavior. Patient is calm and directable Speech: Patient's speech is fluent and nonpressured. Mood/Affect: Mood is improving, affect is congruent and constricted. Suicidality/Homicidality: Patient denies having any suicidal or homicidal ideation intent or plan. Perceptions: Patient denies any auditory or visual hallucinations. Though content/process: Patient's thought process is tangential/circumstantial. No delusions or preoccupations. Memory and concentration: AOX3, grossly intact for the purposes of this session Judgment and insight: improving mildly Assessment/Plan: Continue with current diagnosis. Patient continues to meet criteria for inpatient psychiatric admission for symptom stabilization and safety.Patient will be maintained on current psychotropic medication regimen. Will decide if patient will need Abilify maintenna long-acting injection next week prior to discharge. Monitor for medication compliance and for any psychotropic medication side effects. Will continue to monitor ongoing response to treatment.
[2019-06-24] MEDS: LORazepam 1 MG TAB PO PRN (14:00)
[2019-06-24] MEDS: DIVALPROEX ER 250 MG TAB.ER.24H PO SCH (21:10)
[2019-06-25] MEDS: LORazepam 1 MG TAB PO PRN (06:38)
[2019-06-25] MEDS: NICOTINE 14MG/24HR PATCH TRANSDERM SCH (08:02)
--- NOTE | 2019-06-25 11:20 | P.PN ---
Progress Note - Text Progress Note Date: 06/25/19 Interval history: The patient was seen laying down in her bed and was agreeable to be to sba underwriter. Patient continues to be tangential and hyperverbal in her thought process and claimed that she is missing her children and spoke about the "mistake" that she is done and spoke about how she thought that people had a third eye when she was really speaking about being able to have an intuition about people. She claimed that she did not sleep well last night and feels anxious about leaving the hospital. She states that she has been going to groups and interacting well with others. At this time patient denies any suicidal or homicidal ideations intent or plan. Denies any Auditory or visual hallucinations. Patient denies any side effects from the medications and has been compliant with meds. Mental status exam: General Appearance: Patient appears to be stated age is alert, pleasant, and cooperative. Behavior: No agitated behavior. Patient is calm and directable Speech: Patient's speech is fluent and nonpressured. Hyperverbal Mood/Affect: Mood is improving, affect is congruent and constricted. Suicidality/Homicidality: Patient denies having any suicidal or homicidal ideation intent or plan. Perceptions: Patient denies any auditory or visual hallucinations. Though content/process: Patient's thought process is tangential No delusions or preoccupations. Memory and concentration: AOX3, grossly intact for the purposes of this session Judgment and insight: improving mildly Assessment/Plan: Continue with current diagnosis. Patient continues to meet criteria for inpatient psychiatric admission for symptom stabilization and safety.Patient will be maintained on current psychotropic medication regimen. Will decide if patient will need Abilify maintenna long-acting injection next week prior to discharge. Monitor for medication compliance and for any psychotropic medication side effects. Will continue to monitor ongoing response to treatment.
[2019-06-25] MEDS: MAGNESIUM HYDROXIDE 2,400 MG/10 ML CUP PO PRN (14:58)
[2019-06-25] MEDS: DIVALPROEX ER 250 MG TAB.ER.24H PO SCH (20:52)
[2019-06-26] MEDS: NICOTINE 14MG/24HR PATCH TRANSDERM SCH (09:19)
[2019-06-26] MEDS ORDERED: ARIPiprazole IM SYRINGE 400 MG (NO CHARGE) IM ONE (10:47)
--- NOTE | 2019-06-26 10:50 | P.PN ---
Progress Note - Text Interval history: The patient is found in group she follows me to an interview room. She reports her mood is good. She expresses some anxiety about being discharged but is looking forward to that. Staff report no behavioral disturbances over the weekend. She received no injections for agitated behavior. She has been appropriate participating in group. Her case was discussed today during treatment team meeting. Social work will verify where the patient will be able to go in terms of placement. They will contact CPS again to solidify plans. The patient remains compliant with her medication we discussed initiating the Abilify maintena. Mental status exam: The patient is alert she seated in the chair calmly. Eye contact is appropriate. Speech is fluent spontaneous. She demonstrated circumstantial thinking at times. She is easily directed during the conversation. She is reporting no suicidal or homicidal ideation intent or plan. She is reporting no auditory or visual hallucinations or any specific delusions. During this interaction she demonstrated no evidence of psychosis. Thought process is becoming more linear during the hospitalization. She may be tangential at times but is directable. She demonstrates no verbal or physical aggressiveness she is demonstrating no involuntary repetitive movements. I nsight and judgment are improving. Plan: The patient will continue on her current psychotropic medications. We will initiate the Abilify maintena 400 mg today. I expect she will be appropriate for discharge tomorrow. We will collaborate with CPS and community mental health regarding discharge planning. Vital signs reviewed.
[2019-06-26] MEDS ORDERED: WATER FOR INJECTION, STERILE 10 ML IV ONE (14:35)
[2019-06-26] MEDS: LORazepam 1 MG TAB PO PRN (17:55)
[2019-06-26] MEDS: DIVALPROEX ER 250 MG TAB.ER.24H PO SCH (20:39)
[2019-06-27 07:00] VITALS: BP 108/67; PULSE 80; RESP 13; TEMP 97.8
[2019-06-27] MEDS: NICOTINE 14MG/24HR PATCH TRANSDERM SCH (09:28)
--- NOTE | 2019-06-27 09:56 | P.DS ---
Providers Date of admission: 06/02/19 20:26 Expected date of discharge: 06/27/19 Attending physician: Esvin Tejeda Consults: 06/02/19 20:30 Consult Physician Routine Consulting Provider: Armando Augustin Consult Reason/Comments: medical management Do you want consulting provider notified?: Yes, Notify in am Primary care physician: Pricila Cerrato - Discharge Diagnosis(es) (1) Schizoaffective disorder, bipolar type Current Visit: Yes Status: Acute Priority: High Hospital Course: This patient is a 24-year-old female who was admitted to the mental health unit through the emergency room for evaluation of manic and psychotic symptoms. Upon presentation the patient was described as being confused with pressured tangential speech. She was noted to jump from topic to topic and she was religiously preoccupied. For full details please refer to the psychiatric evaluation dictated by Dr. Johnson on 06/03/2019. Summary of hospital course: The patient was admitted to the mental health unit in voluntarily. She did have a deferral conference and signed the deferral agreement. However shortly after doing so she started to refuse doses of medication intermittently. A demand for hearing scheduled. At Court she had stipulated to a treatment order. The patient was initially seen by Dr. Johnson. The patient was started on Abilify 5 mg daily. Initially the patient was quite resistant to taking medication. Ultimately she became agreeable and we were able to titrate the dose. The oral dose is currently at 20 mg daily. The patient continued to demonstrate symptoms of psychosis and jordon throughout this lengthy admission. I did add Depakote ER 750 mg at bedtime. After hitting steady state a blood level was drawn and the level was 67.3 liver enzymes were normal. The patient demonstrated slow progress over the course of this admission. She is now much more organized in terms of thought process. She is doing much better in terms of controlling her behavior. She was demonstrating more anger response on a regular basis early into the adm ission. She was seen by internal medicine for routine history and physical exam. Social work met with the patient numerous times for completion of the psychosocial assessment and for discharge planning purposes. There is an open CPS case involving the patient. The CPS worker did come up and meet with the patient with social work present last week. We agreed that the patient would be best served by following up with [facility]. At this point the patient has sufficiently stabilized so that she may be transition to outpatient care. Mental status exam: The patient is alert she is pleasant and cooperative. She is dressed in her own clothing. Hygiene and grooming are good. She indicates her mood is good and affect is appropriate and congruent to reported mood. She is reporting no suicidal ideation intent or plan. She reports no homicidal ideation intent or plan. At no time did she voice any thoughts or desires of wanting to hurt her children during this admission. She is reporting no auditory or visual hallucinations she is endorsing no specific delusions. She may still have some residual congregation preoccupation. She demonstrates no verbal or physical aggressiveness she demonstrates no involuntary repetitive movements. Insight and judgment have improved. She is oriented to person place and date. She describes a number of activities she wants to participate in, in terms of future oriented thinking. Impressions 1. Schizoaffective disorder bipolar type, rule out cannabis use disorder Plan: The patient will be discharged from the mental health unit today to return home. She will continue on Abilify 20 mg daily for 13 more days, she will continue on Depakote ER 750 mg at bedtime. She received the Abilify maintena injection of 400 mg yesterday the next one will be due in 28 days. She is instructed to abstain from any use of alcohol marijuana or illicit drugs his disease will precipitate more mood and psychotic symptoms and ultimately elevate her safety risk. At this time there is no imminent safety risk she is appropriate for transition to outpatient care. She is instructed to return to the hospital with any acute safety concerns. Patient Condition at Discharge: Stable Plan - Discharge Summary New Discharge Prescriptions: New ARIPiprazole [Abilify] 20 mg PO 1700 #13 tab ARIPiprazole IM [Abilify Maintena] 400 mg IM QMONTH #1 vial Divalproex ER [Depakote ER] 750 mg PO HS #45 tab.er.24h Nicotine 14Mg/24Hr Patch [Habitrol] 1 patch TRANSDERM DAILY #14 patch Continue Albuterol Sulfate [Proair Hfa] 2 puff INHALATION RT-Q6H PRN PRN Reason: Shortness Of Breath Discharge Medication List Albuterol Sulfate [Proair Hfa] 2 puff INHALATION RT-Q6H PRN 06/02/19 [History] ARIPiprazole IM [Abilify Maintena] 400 mg IM QMONTH #1 vial 06/27/19 [Rx] ARIPiprazole [Abilify] 20 mg PO 1700 #13 tab 06/27/19 [Rx] Divalproex ER [Depakote ER] 750 mg PO HS #45 tab.er.24h 06/27/19 [Rx] Nicotine 14Mg/24Hr Patch [Habitrol] 1 patch TRANSDERM DAILY #14 patch 06/27/19 [Rx] Follow up Appointment(s)/Referral(s): [facility] [Outside] - 06/29/19 8:30 am Pricila Cerrato MD [Primary Care Provider] - 1-2 days Patient Instructions/Handouts: Suicide Prevention (DC) Activity/Diet/Wound Care/Special Instructions: Activity and diet as tolerated. No guns or weapons in the home. Refrain from alcohol and street drugs not prescribed by your physician. If in need of medication refills, please go to your primary care physician, or to your out patient psychiatric provider. Please take all medications as prescribed, and attend all after care appointments as scheduled. If in crisis, please call , or go the nearest ER for an evaluation.
== END 2019-06-27 14:31 | disposition home or self-care (01) | DRG 885 ==
LOC: EC 14:50 → 3MHU 20:26
PROVIDERS: ADMIT Psychiatry & Neurology Psychiatry; ATTEND Psychiatry & Neurology Psychiatry
DX: F25.0 Schizoaffective disorder, bipolar type (principal); F10.10 Alcohol abuse, uncomplicated; F12.10 Cannabis abuse, uncomplicated; F17.210 Nicotine dependence, cigarettes, uncomplicated; Z71.6 Tobacco abuse counseling; F41.8 Other specified anxiety disorders; J45.20 Mild intermittent asthma, uncomplicated; Z62.810 Personal history of physical and sexual abuse in childhood; Z63.9 Problem related to primary support group, unspecified; Z65.3 Problems related to other legal circumstances; Z79.899 Other long term (current) drug therapy; Z81.8 Family history of other mental and behavioral disorders; Z81.3 Family history of other psychoactive substance abuse and dependence; Z88.0 Allergy status to penicillin; Z88.2 Allergy status to sulfonamides
CPT/HCPCS: 80053; 80061; 80164; 80306; 81001; 81025; 82075; 83036; 84443; 84450; 84460; 85025; 99285

== ENCOUNTER → 2019-07-14 | Outpatient (CLI) | payer OTHER | END | disposition home or self-care (01) | LOC: LABWHC1 10:56 | PROVIDERS: ATTEND Psychiatry & Neurology Psychiatry | DX: F31.2 Bipolar disorder, current episode manic severe with psychotic features (principal) | CPT/HCPCS: 36415; 80164 ==

== ENCOUNTER → 2019-09-28 | Outpatient (CLI) | payer OTHER | END | disposition home or self-care (01) | LOC: LABWHC1 14:12 | PROVIDERS: ATTEND Psychiatry & Neurology Psychiatry | DX: F31.2 Bipolar disorder, current episode manic severe with psychotic features (principal) | CPT/HCPCS: 36415; 80164 ==

== ENCOUNTER → 2020-02-16 | Outpatient (CLI) | payer OTHER ==
--- NOTE | 2020-02-18 10:06 | US ---
EXAMINATION TYPE: Transabdominal DATE OF EXAM: 02/16/2020 4:21 PM COMPARISON: NONE CLINICAL HISTORY: Z36 CONFIRM DATES. Confirm dates, 3, para 2 EXAM PERFORMED: Transabdominal (TA) EXAM MEASUREMENTS: GESTATIONAL AGE / DATING Physician Established: (13 weeks/3 days) EDC: 08/20/2020 Dates by LMP: (13 weeks/3 days) EDC: 08/20/2020 Dates by First Scan: This is 1st scan Dates by Current Scan for: (12 weeks/6 days) EDC: 08/24/2020 MATERNAL ANATOMY Uterus: 15.8 x 6.9 x 9.6cm Right Ovary: 2.9 x 1.2 x 1.9cm Left Ovary: 3.3 x 2.9 x 2.8cm Post CDS / Adnexa: wnl Presence of free fluid: no Presence of corpus luteal cyst: left ovary: 1.5 x 1.2 x 1.5cm Presence of subchorionic bleed: no GESTATION / SURVEY CRL: 6.5cm (12 weeks/6 days) Yolk Sac (normal less than 6mm): not seen Heart Rate: 153 bpm Rhythm: Normal IUP: Viable IUP Date of LMP: 11/14/2019 Beta HcG (if available): Not available at time of exam Viable single IUP measuring 12 weeks 6 days with a heart rate of 153bpm and an estimated delivery phani e of 08/24/2020. IMPRESSION: Single viable intrauterine corresponding to ultrasound age 12 weeks 6 days with estimated d ate of delivery 08/24/2020 by today's exam
== END | disposition home or self-care (01) ==
LOC: RADUSWWP 15:59
PROVIDERS: ATTEND Obstetrics & Gynecology
DX: Z36.9 Encounter for antenatal screening, unspecified (principal); Z3A.12 12 weeks gestation of pregnancy
CPT/HCPCS: 76801

== ENCOUNTER 2020-08-13 06:00 | Inpatient (IN) | payer OTHER ==
[2020-08-13] MEDS ORDERED: LIDOCAINE 0.5% (PF) 5 MG/ML (50 ML SDV) SQ PRN (06:30)
[2020-08-13] MEDS ORDERED: OXYTOCIN 10 UNIT/ML 1 ML VIAL IM PRN (06:30)
[2020-08-13] MEDS ORDERED: TERBUTALINE 1 MG/ML VIAL SQ PRN (06:30)
[2020-08-13] MEDS ORDERED: METHYLERGONOVINE 0.2 MG/ML 1 ML AMP IM PRN (06:30)
[2020-08-13] MEDS ORDERED: CARBOPROST TROMETHAMINE 250 MCG/ML 1 ML AMP IM PRN (06:30)
[2020-08-13] MEDS ORDERED: OXYTOCIN 30 UNITS/500 ML NS 30 UNIT in SALINE 1 500ML.BAG IV SCH (06:30)
[2020-08-13] MEDS: LACTATED RINGERS 1,000 ML IV SCH ×2 (06:35→10:19)
[2020-08-13] MEDS: CLINDAMYCIN 900 MG in DEXTROSE 5% IN WATER 50 ML IVPB SCH ×4 (06:51→15:54)
[2020-08-13 06:54] LABS: Basophils % (A) 0 %; Eosinophils # (A) 0.2 k/uL (0-0.7); Eosinophils % (A) 2 %; HCT 32.3 % (34.0-46.0); HGB 10.9 gm/dL (11.4-16.0); Lymphocytes # (A) 2.6 k/uL (1.0-4.8); Lymphocytes % (A) 27 %; MCH 29.3 pg (25.0-35.0); MCHC 33.7 g/dL (31.0-37.0); MCV 86.9 fL (80.0-100.0); Mean Platelet Volume 12.4; Monocytes # (A) 0.4 k/uL (0-1.0); Monocytes % (A) 4 %; Neutrophils # (A) 6.4 k/uL (1.3-7.7); Neutrophils % (A) 65 %; Platelet Count 204 k/uL (150-450); RBC 3.72 m/uL (3.80-5.40); RDW 12.7 % (11.5-15.5); WBC 9.9 k/uL (3.8-10.6)
[2020-08-13 07:51] LABS: Large Platelets Present
[2020-08-13] MEDS ORDERED: fentaNYL (PF) 50 MCG/ML 5 ML AMP ONE (10:22)
[2020-08-13] MEDS ORDERED: SODIUM CHLORIDE 0.9% 100 ML BAG ONE (10:22)
[2020-08-13] MEDS ORDERED: ROPIVACAINE 5MG/ML 20ML VIAL ONE (10:22)
--- NOTE | 2020-08-13 12:39 | P.HPOB ---
History of Present Illness H&P Date: 08/13/20 Chief Complaint: Induction of Labor 25 year old presents at 39 weeks for induction of labor. Her cervix is 3/70/-2 and she is reji irregularly. heart tones 130 with moderate variability and reactive. Review of Systems All systems: negative Constitutional: Denies chills, Denies fever Eyes: denies blurred vision, denies pain Ears, nose, mouth and throat: Denies headache, Denies sore throat Cardiovascular: Denies chest pain, Denies shortness of breath Respiratory: Denies cough Gastrointestinal: Denies abdominal pain, Denies diarrhea, Denies nausea, Denies vomiting Genitourinary: Denies dysuria, Denies hematuria Musculoskeletal: Denies myalgias Integumentary: Denies pruritus, Denies rash Neurological: Denies numbness, Denies weakness Psychiatric: Denies anxiety, Denies depression Endocrine: Denies fatigue, Denies weight change Past Medical History Past Medical History: No Reported History Additional Past Medical History / Comment(s): OB history: first two pregnancies were a vaginal deliveries. THis is her third and she had had care with pa. A+, abs neg, Rub Imm, RPR NR, HIV NR, Hep B neg. normal 1hr. GBS neg. History of Any Multi-Drug Resistant Organisms: None Reported Past Surgical History: Adenoidectomy, Tonsillectomy Past Anesthesia/Blood Transfusion Reactions: No Reported Reaction Past Psychological History: Anxiety, Depression Smoking Status: Vaper Past Alcohol Use History: None Reported Additional Past Alcohol Use History / Comment(s): pt states she drinks a glass of wine here and there but she "juices" it down Past Drug Use History: None Reported - Past Family History Mother Additional Family Medical History / Comment(s): Depression/Bipolar Father Additional Family Medical History / Comment(s): Schizophrenia Medications and Allergies Home Medications Medication Instructions Recorded Confirmed Type Pnv No.95/Ferrous Fum/Folic AC 1 tab PO DAILY 08/13/20 08/13/20 History [ Multivitamin Tablet] Sertraline [Zoloft] 50 mg PO DAILY 08/13/20 08/13/20 History Allergies Allergy/AdvReac Type Severity Reaction Status Date / Time Penicillins Allergy Rash/Hives Verified 08/13/20 06:27 Sulfa (Sulfonamide Allergy Swelling Verified 08/13/20 06:27 Antibiotics) Exam Osteopathic Statement: *. No significant issues noted on an osteopathic structural exam other than those noted in the History and Physical/Consult. Vital Signs Temp Pulse Resp BP Pulse Ox 08/13/20 06:26 97.6 F 86 14 143/73 98 Intake and Output 08/12/20 08/13/20 08/13/20 22:59 06:59 14:59 Other: Weight 80.286 kg Heart: Regular rate and rhythm Lungs: Clear to auscultation bilaterally Abdomen: Soft, nontender Extremities: Negative Homans sign Results Result Diagrams: 08/13/20 06:30 Abnormal Lab Results - Last 24 Hours (Table) 08/13/20 Range/Units 06:30 RBC 3.72 L (3.80-5.40) m/uL Hgb 10.9 L (11.4-16.0) gm/dL Hct 32.3 L (34.0-46.0) % Assessment and Plan (1) Normal labor Current Visit: No Status: Resolved Code(s): O80 - ENCOUNTER FOR FULL-TERM UNCOMPLICATED DELIVERY; Z37.9 - OUTCOME OF DELIVERY, UNSPECIFIED SNOMED Code(s): 53028964 Plan: 1. Induction of labor with amniotomy and Pitocin 2. Anticipate normal vaginal delivery
--- NOTE | 2020-08-13 12:41 | P.PROBDLV ---
Vaginal Delivery Note - . Vaginal Delivery Note: 5-year-old presents at 39 weeks for induction of labor. Her cervix was 3 cm dilated, 70% effaced, -2 station. She is reji irregularly. heart tones 130 with moderate variability and reactive. Pitocin was started. Amniotomy performed at 7:58 AM and clear fluid noted. When she was uncomfortable she did get an epidural. Her cervix was completed diet around 15 p.m. She pushed, delivered a viable female over intact perineum under epidural anesthesia at 12:22 PM. Head delivered OA, nuchal cord 1 easily reduced, anterior shoulder delivered gentle downward guidance followed by posterior shoulder and rest of body. Nose and mouth bulb suctioned, cord clamped cut, infant placed mother's abdomen. Apgars 8, 9, weight 6 lbs. 15 oz. Placenta delivered spontaneous, intact with three-vessel cord at 1227. Vagina, cervix, perineum inspected. No lacerations noted. Estimated blood loss 150 mL. Mother and baby in stable condition.
[2020-08-13] MEDS ORDERED: SIMETHICONE 80 MG CHEWABLE PO PRN (13:04)
[2020-08-13] MEDS ORDERED: diphenhydrAMINE 50 MG/ML 1 ML VIAL IVP PRN ×2 (13:04)
[2020-08-13] MEDS ORDERED: diphenhydrAMINE 25 MG CAP PO PRN (13:04)
[2020-08-13] MEDS ORDERED: ZOLPIDEM 5 MG TAB PO PRN (13:04)
[2020-08-13] MEDS ORDERED: BENZOCAINE/MENTHOL SPRAY 1 GM/SPRAY AEROSOL TOPICAL PRN (13:04)
[2020-08-13] MEDS ORDERED: ACETAMINOPHEN TAB 325 MG TAB PO PRN (13:04)
[2020-08-13] MEDS ORDERED: diphenhydrAMINE 50 MG CAP PO PRN (13:04)
[2020-08-13] MEDS ORDERED: HYDROCORTISONE 2.5% RECTAL CREAM 30 GM TUBE RECTAL PRN (13:04)
[2020-08-13] MEDS ORDERED: LANOLIN CREAM 5 GM TUBE TOPICAL PRN (13:04)
[2020-08-13] MEDS ORDERED: OXYTOCIN 20 UNITS/1000 ML NS 1,000 ML IV SCH (13:15)
[2020-08-13] MEDS: IBUPROFEN 600 MG TAB PO PRN (15:21)
[2020-08-14] MEDS: SENNOSIDES-DOCUSATE SODIUM 1 EACH TAB PO SCH ×2 (01:02→17:01)
[2020-08-14] MEDS: LACTATED RINGERS 1,000 ML IV SCH (01:02)
[2020-08-14] MEDS: CLINDAMYCIN 900 MG in DEXTROSE 5% IN WATER 50 ML IVPB SCH ×2 (01:04)
[2020-08-14] MEDS: IBUPROFEN 600 MG TAB PO PRN ×2 (04:17→16:42)
[2020-08-14 07:08] LABS: Basophils % (A) 0 %; Eosinophils # (A) 0.3 k/uL (0-0.7); Eosinophils % (A) 3 %; HCT 31.4 % (34.0-46.0); HGB 10.4 gm/dL (11.4-16.0); Hypochromasia Slight; Lymphocytes # (A) 2.9 k/uL (1.0-4.8); Lymphocytes % (A) 26 %; MCV 87.9 fL (80.0-100.0); Mean Platelet Volume 12.6; Monocytes # (A) 0.5 k/uL (0-1.0); Monocytes % (A) 5 %; Neutrophils # (A) 7.3 k/uL (1.3-7.7); Neutrophils % (A) 65 %; RBC 3.57 m/uL (3.80-5.40); RDW 12.9 % (11.5-15.5); WBC 11.2 k/uL (3.8-10.6)
--- NOTE | 2020-08-14 08:14 | P.DS ---
Providers Date of admission: 08/13/20 06:09 Expected date of discharge: 08/14/20 Attending physician: Brooklyn Rai Primary care physician: Stated None - Discharge Diagnosis(es) (1) Normal vaginal delivery Current Visit: No Status: Acute Hospital Course: Patient presents for induction of labor. She underwent a normal vaginal delivery. course was uncomplicated. As nausea, vomiting, chest pain, shortness of breath or any calf pain. She'll be discharged home day #1 in stable condition to follow-up with me in 6 weeks. Plan - Discharge Summary New Discharge Prescriptions: New Ibuprofen [Motrin] 600 mg PO Q6HR PRN #30 tab PRN Reason: Mild Pain Or Fever >= 100.5 No Action Sertraline [Zoloft] 50 mg PO DAILY Pnv No.95/Ferrous Fum/Folic AC [ Multivitamin Tablet] 1 tab PO DAILY Discharge Medication List Pnv No.95/Ferrous Fum/Folic AC [ Multivitamin Tablet] 1 tab PO DAILY 08/13/20 [History] Sertraline [Zoloft] 50 mg PO DAILY 08/13/20 [History] Ibuprofen [Motrin] 600 mg PO Q6HR PRN #30 tab 08/14/20 [Rx] Follow up Appointment(s)/Referral(s): Brooklyn Rai DO [Doctor of Osteopathic Medicine] - 6 Weeks Discharge Disposition: HOME SELF-CARE
[2020-08-14 08:38] LABS: Platelet Count 172 k/uL (150-450)
[2020-08-14 08:39] LABS: Large Platelets Present
[2020-08-14 16:50] VITALS: BP 121/73; PULSE 68; RESP 17; TEMP 97.8
== END 2020-08-14 17:15 | disposition home or self-care (01) | DRG 807 ==
LOC: 4FBP 06:09
PROVIDERS: ADMIT Obstetrics & Gynecology; ATTEND Obstetrics & Gynecology
PROC: 10E0XZZ Delivery of Products of Conception, External Approach (ICD-10-PCS; principal; 2020-08-13)
PROC: 00HU33Z Insertion of Infusion Device into Spinal Canal, Percutaneous Approach (ICD-10-PCS; principal; 2020-08-13)
PROC: 10907ZC Drainage of Amniotic Fluid, Therapeutic from Products of Conception, Via Natural or Artificial Opening (ICD-10-PCS; principal; 2020-08-13)
PROC: 3E033VJ Introduction of Other Hormone into Peripheral Vein, Percutaneous Approach (ICD-10-PCS; principal; 2020-08-13)
PROC: 3E0R3NZ Introduction of Analgesics, Hypnotics, Sedatives into Spinal Canal, Percutaneous Approach (ICD-10-PCS; principal; 2020-08-13)
DX: O69.81X0 Labor and delivery complicated by cord around neck, without compression, not applicable or unspecified (principal); Z37.0 Single live birth; O99.344 Other mental disorders complicating childbirth; F32.9 Major depressive disorder, single episode, unspecified; F41.9 Anxiety disorder, unspecified; Z3A.39 39 weeks gestation of pregnancy; Z79.899 Other long term (current) drug therapy; Z81.8 Family history of other mental and behavioral disorders; Z90.89 Acquired absence of other organs; Z88.0 Allergy status to penicillin; Z88.2 Allergy status to sulfonamides
CPT/HCPCS: 85025; 86850; 86900; 86901

== ENCOUNTER 2021-11-11 11:51 | Emergency (ER) | payer OTHER ==
[2021-11-11 12:09] VITALS: BP 121/70; PULSE 84; RESP 20; TEMP 98
--- NOTE | 2021-11-11 13:08 | XR ---
Right elbow, right forearm and right wrist HISTORY: Trauma and pain 3 views of the right elbow, 2 views of the right forearm, 4 views the right wrist submitted Bone mineralization, joint spaces and alignment are maintained at the wrist. Question some soft tissu e swelling in the right wrist. Radial head fracture is minimally displaced. There is a joint effusion. There is associated soft tiss ue swelling. IMPRESSION: Radial head fracture. No evident fracture or dislocation of the right wrist.
[2021-11-11] MEDS ORDERED: HYDROcodone/APAP 7.5-325MG 1 EACH TAB PO ONE (14:40)
[2021-11-11] MEDS ORDERED: ACET/COD 300 MG/30 MG STARTER PACK 6 TAB BTL PO STA (15:25)
--- NOTE | 2021-11-11 15:31 | ED ---
Fall HPI - General Chief Complaint: Fall Stated Complaint: Fall/Rt Arm Injury Time Seen by Provider: 11/11/21 14:28 Source: patient, RN notes reviewed Mode of arrival: ambulatory Limitations: no limitations - History of Present Illness Initial Comments: This is a 18-year-old female who presents to the emergency department for right elbow pain after falling yesterday. She tripped at home and landed on her right arm, and has had pain in the elbow ever since. Does report significant pain, however she is still able to move her arm. Denies any numbness, tingling, or loss of sensation in the arm and hands. Swelling and ecchymosis has also developed around the elbow. She has taken Motrin 500mg TID for the pain with little relief. 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) Fall Witnessed: no Loss of Consciousness: none Prolonged Down Time?: no Symptoms Prior to Fall: none Location - Extremities: Right: Arm Context: tripped/slipped - Related Data Home Medications Medication Instructions Recorded Confirmed Pnv No.95/Ferrous Fum/Folic AC 1 tab PO DAILY 08/13/20 08/13/20 [ Multivitamin Tablet] Sertraline [Zoloft] 50 mg PO DAILY 08/13/20 08/13/20 Previous Rx's Medication Instructions Recorded Ibuprofen [Motrin] 600 mg PO Q6HR PRN #30 tab 08/14/20 HYDROcodone/APAP 5-325MG [Driftwood 1 tab PO Q4HR PRN 3 Days #18 tab 11/11/21 5-325] Allergies Allergy/AdvReac Type Severity Reaction Status Date / Time Penicillins Allergy Rash/Hives Verified 11/11/21 12:09 Sulfa (Sulfonamide Allergy Swelling Verified 11/11/21 12:09 Antibiotics) Review of Systems ROS Statement: Those systems with pertinent positive or pertinent negative responses have been documented in the HPI. ROS Other: All systems not noted in ROS Statement are negative. Constitutional: Denies: fever, chills ENT: Denies: ear pain, throat pain Respiratory: Denies: cough, dyspnea Cardiovascular: Denies: chest pain, palpitations Gastrointestinal: Denies: abdominal pain, nausea, vomiting, diarrhea Musculoskeletal: Reports: other (right arm pain) Skin: Denies: rash, lesions Neurological: Denies: headache Past Medical History Past Medical History: No Reported History Additional Past Medical History / Comment(s): OB history: first two pregnancies were a vaginal deliveries. THis is her third and she had had care with me. A+, abs neg, Rub Imm, RPR NR, HIV NR, Hep B neg. normal 1hr. GBS neg. History of Any Multi-Drug Resistant Organisms: None Reported Past Surgical History: Adenoidectomy, Tonsillectomy Past Anesthesia/Blood Transfusion Reactions: No Reported Reaction Past Psychological History: Anxiety, Depression Smoking Status: Vaper Past Alcohol Use History: Occasional Past Drug Use History: None Reported - Past Family History Mother Additional Family Medical History / Comment(s): Depression/Bipolar Father Additional Family Medical History / Comment(s): Schizophrenia General Exam Limitations: no limitations General appearance: alert, in no apparent distress Head exam: Present: atraumatic, normocephalic, normal inspection Respiratory exam: Present: normal lung sounds bilaterally. Absent: respiratory distress, wheezes, rales, rhonchi, stridor Cardiovascular Exam: Present: regular rate, normal rhythm, normal heart sounds. Absent: systolic murmur, diastolic murmur, rubs, gallop, clicks Right Upper Arm exam: Present: normal inspection Elbow exam: Present: tenderness, swelling, ecchymosis (over the lateral epicondyle), pain w/ pronation/supination, tenderness over radial head. Absent: normal inspection, full ROM, abrasion, laceration, erythema Forearm Wrist exam: Present: normal inspection, full ROM. Absent: tenderness, swelling Hand Wrist exam: Present: normal inspection, full ROM. Absent: tenderness, swelling Neurosensory exam: Present: 2-point discrimination Vascular: Present: normal capillary refill. Absent: vascular compromise, Pallo, pulse deficit radial art, pulse deficit ulnar art Neurological exam: Present: alert, oriented X3, CN II-XII intact Psychiatric exam: Present: normal affect, normal mood Skin exam: Present: warm, dry, intact, normal color. Absent: rash Course Vital Signs 11/11/21 12:05 Temperature 98.0 F Pulse Rate 84 Respiratory 20 Rate Blood Pressure 121/70 O2 Sat by Pulse 100 Oximetry Procedures - Orthopedic Splinting/Casting Injury #1 Side: right Upper Extremity Injury Location: elbow Upper Extremity Immobilizer: sling/shoulder immobilizer, posterior splint Medical Decision Making - Medical Decision Making This is a 26-year-old female who presents to the emergency department with right arm pain after falling. X-rays revealed a radial head fracture. A posterior splint was applied to the right arm and she was placed in a sling. Patient had intact pulses, sensation, and capillary refill <1 second before and after splint application. Driftwood provided in the emergency department for pain relief. Tylenol #3 starter pack and a 3 day supply of Driftwood was sent to her pharmacy. Information for orthopedic follow-up provided on her paperwork. Return precautions reviewed in depth, the patient is instructed to return to the emergency department if she develops worsening pain, fevers/chills, or loss of sensation in the arm or hand. Patient verbalized understanding. This case was discussed in detail with the attending ED physician. Presentation, findings, and treatment plan discussed in detail as well. - Radiology Data Radiology results: report reviewed, image reviewed Interpreted by me: Minimally displaced right radial head fracture Disposition Clinical Impression: Fracture of radial head, right, closed Disposition: HOME SELF-CARE Instructions (If sedation given, give patient instructions): Elbow Fracture (E D) Additional Instructions: Return to the emergency department if you develop increased pain or loss of sensation in the arm or fingertips. Contact orthopedics for an appointment. Avoid driving while taking opioids. Prescriptions: HYDROcodone/APAP 5-325MG [Driftwood 5-325] 1 tab PO Q4HR PRN 3 Days #18 tab PRN Reason: Pain Is patient prescribed a controlled substance at d/c from ED?: Yes When asked, does pt state using other controlled substances?: No If prescribed controlled substance>3 days was MAPS reviewed?: Prescribed <3 Days Referrals: Pricila Cerrato MD [Primary Care Provider] - 1-2 days Olegario Van DO [Doctor of Osteopathic Medicine] - 1-2 days
== END 2021-11-11 16:50 | disposition home or self-care (01) ==
LOC: EC 11:51
DX: S52.121A Displaced fracture of head of right radius, initial encounter for closed fracture (principal); F41.9 Anxiety disorder, unspecified; F32.A Depression, unspecified; F17.290 Nicotine dependence, other tobacco product, uncomplicated; Z88.0 Allergy status to penicillin; Z88.2 Allergy status to sulfonamides; W01.0XXA Fall on same level from slipping, tripping and stumbling without subsequent striking against object, initial encounter
CPT/HCPCS: 29125; 99283

== ENCOUNTER 2022-03-25 08:20 | Outpatient (CLI) | payer OTHER ==
[2022-03-25 09:38] LABS: Appearance,Urine Cloudy (Clear); Bilirubin,Urine Negative (Negative); Blood,Urine Moderate (Negative); Color,Urine Yellow; Glucose,Urine (UA) Negative (Negative); Ketones,Urine Negative (Negative); Leukocyte Esterase,Urine Large (Negative); Mucus,Urine Rare /hpf; Nitrite,Urine Negative (Negative); PH, Urine 7.5 (5.0-8.0); Protein,Urine 2+ (Negative); RBC,Urine 78 /hpf (0-5); Specific Gravity,Urine 1.015 (1.001-1.035); Squamous Epithelial Cell,Urine <1 /hpf (0-4); Urobilinogen,Urine <2.0 mg/dL (<2.0); WBC,Urine >182 /hpf (0-5)
[2022-03-25 09:41] VITALS: BP 113/55; PULSE 80; RESP 16; TEMP 97.5
--- NOTE | 2022-04-01 07:39 | P.MSEPDOC ---
Presenting Problems - Arrival Data Date of Arrival on Unit: 03/25/22 Time of Arrival on Unit: 08:23 Mode of Transport: Ambulatory - Complaint OB-Reason for Admission/Chief Complaint: Pain Comment: pelvic and rectal pressure x3 days Medical History - Information : 4 Para: 3 Number of Living Children: 3 - Gestational Age Gestational Age by ALIZA (wks/days): 23 Weeks and 0 Days - History Complications: Hx. Substance Abuse Comment: THC daily Review of Systems - Review of Systems Constitutional: No problems Breast: No problems ENT: No problems Cardiovascular: No problems Respiratory: No problems Gastrointestinal: Constipation Genitourinary: Urgency, Increased frequency Musculoskeletal: No problems Neurological: No problems Skin: No problems Vital Signs - Temperature Temperature: 97.5 F Temperature Source: Temporal Artery Scan - Pulse Right Sitting Brachial Pulse Rate: 80 Pulse Assessment Method: Automatic Cuff - Respirations Respiratory Rate: 16 Oxygen Delivery Method: Room Air O2 Sat by Pulse Oximetry: 99 - Blood Pressure Right Arm Sitting Blood Pressure: 113/55 Blood Pressure Mean: 74 Blood Pressure Source: Automatic Cuff Medical Screen Scoring - Cervical Exam Dilation (cm): 0 Effacement (%): 0 Membranes: Intact - Uterine Contractions Intensity: Absent - Assessment - Baby A Baseline FHR: 140 Heart Rate - NICHD Category: Category I (Normal) Physician Notification - Physician Notified Physician Notified Date: 03/25/22 Physician Notified Time: 08:50 Physician: Brooklyn Rai Order Received: Yes (dc) Maternal Triage Index - Maternal Triage Index Presenting for scheduled procedure w/no complaint: No - Stat/Priority 1 Stat Priority 1: No - Urgent/Priority 2 Urgent Priority 2: No - Prompt/Priority 3 Prompt Priority 3: No - Non-Urgent/Priority 4 Non-Urgent Priority 4: Yes Criteria Met for Priority 4: pelvic and rectal pressure c/o bowel and urinary symptoms Disposition - Disposition OB Disposition: Discharge to home Discharge Date: 03/25/22 Discharge Time: 09:15 I agree with the RN Medical Screening Exam: Yes Case reviewed; plan agreed upon as documented in EMR&OBIX.: Yes Diagnosis: PELVIC AND PERINEAL PAIN
== END 2022-03-25 09:15 | disposition home or self-care (01) ==
LOC: FBPOP 08:20
PROVIDERS: ATTEND Obstetrics & Gynecology
DX: O26.892 Other specified pregnancy related conditions, second trimester (principal); R10.2 Pelvic and perineal pain; Z3A.23 23 weeks gestation of pregnancy; Z88.0 Allergy status to penicillin; Z88.2 Allergy status to sulfonamides; Z87.891 Personal history of nicotine dependence
CPT/HCPCS: 81001; 87086; G0463; 99213

== ENCOUNTER 2022-07-03 06:00 | Inpatient (IN) | payer OTHER ==
[2022-07-03] MEDS ORDERED: CARBOPROST TROMETHAMINE 250 MCG/ML 1 ML AMP IM PRN (06:33)
[2022-07-03] MEDS ORDERED: TERBUTALINE 1 MG/ML VIAL SQ PRN (06:33)
[2022-07-03] MEDS ORDERED: LIDOCAINE 0.5% (PF) 5 MG/ML (50 ML SDV) SQ PRN (06:33)
[2022-07-03] MEDS ORDERED: CLINDAMYCIN 900 MG in DEXTROSE 5% IN WATER 50 ML IVPB STA ×2 (06:33)
[2022-07-03] MEDS ORDERED: OXYTOCIN 10 UNIT/ML 1 ML VIAL IM PRN (06:33)
[2022-07-03] MEDS ORDERED: METHYLERGONOVINE 0.2 MG/ML 1 ML AMP IM PRN (06:33)
[2022-07-03] MEDS ORDERED: OXYTOCIN 30 UNITS/500 ML NS 30 UNIT in SALINE 1 500ML.BAG IV SCH ×2 (06:45→19:15)
[2022-07-03] MEDS: LACTATED RINGERS 1,000 ML IV SCH ×3 (06:52→11:57)
[2022-07-03 06:57] LABS: Basophils # (A) 0.1 k/uL (0-0.2); Basophils % (A) 1 %; Eosinophils # (A) 0.4 k/uL (0-0.7); Eosinophils % (A) 4 %; HCT 36.1 % (34.0-46.0); HGB 12.3 gm/dL (11.4-16.0); Lymphocytes # (A) 2.8 k/uL (1.0-4.8); Lymphocytes % (A) 31 %; MCH 30.5 pg (25.0-35.0); MCHC 34.1 g/dL (31.0-37.0); MCV 89.5 fL (80.0-100.0); Mean Platelet Volume 10.4; Monocytes # (A) 0.4 k/uL (0-1.0); Monocytes % (A) 5 %; Neutrophils # (A) 5.3 k/uL (1.3-7.7); Neutrophils % (A) 58 %; Platelet Count 274 k/uL (150-450); RBC 4.04 m/uL (3.80-5.40); WBC 9.2 k/uL (3.8-10.6)
[2022-07-03 07:16] LABS: Amphetamine Screen,Urine Not Detected (NotDetected); Barbiturate Screen,Urine Not Detected (NotDetected); Benzodiazepines Screen,Urine Not Detected (NotDetected); Cocaine Screen,Urine Not Detected (NotDetected); Methadone Screen, Urine Not Detected (NotDetected); Opiate Screen,Urine Not Detected (NotDetected); Oxycodone Screen, Urine Not Detected (NotDetected); Phencyclidine Screen,Urine Not Detected (NotDetected); Tricyclic Antidepressant,Urine Not Detected (NotDetected); Urn Cannabinoid Scrn Detected (NotDetected)
[2022-07-03] MEDS ORDERED: ROPIVACAINE 5 MG/ML 20 ML AMPULE ONE (10:02)
[2022-07-03] MEDS ORDERED: SODIUM CHLORIDE 0.9% 100 ML BAG ONE (10:02)
[2022-07-03] MEDS ORDERED: fentaNYL (PF) 50 MCG/ML 5 ML AMP ONE (10:02)
[2022-07-03] MEDS ORDERED: ROPIVACAINE 100 MG, fentaNYL (PF). 200 MCG in SODIUM CHLORIDE 0.9% 76 ML EPIDURAL ONE (10:32)
[2022-07-03] MEDS ORDERED: CLINDAMYCIN 900 MG in DEXTROSE 5% IN WATER 50 ML IVPB SCH ×2 (14:45)
--- NOTE | 2022-07-03 17:29 | P.HPOB ---
History of Present Illness H&P Date: 07/03/22 Chief Complaint: Induction of labor 7-year-old G for P2 presents at 37 weeks and 2 days for induction of labor. Her baby is IUGR and she has polyhydramnios with elevated Dopplers. heart tones are 1:30 with moderate variability and reactive. Cervix is 1-2 cm dilated, 70% effaced, -2 station. Review of Systems All systems: negative Constitutional: Denies chills, Denies fever Eyes: denies blurred vision, denies pain Ears, nose, mouth and throat: Denies headache, Denies sore throat Cardiovascular: Denies chest pain, Denies shortness of breath Respiratory: Denies cough Gastrointestinal: Denies abdominal pain, Denies diarrhea, Denies nausea, Denies vomiting Genitourinary: Denies dysuria, Denies hematuria Musculoskeletal: Denies myalgias Integumentary: Denies pruritus, Denies rash Neurological: Denies numbness, Denies weakness Psychiatric: Denies anxiety, Denies depression Endocrine: Denies fatigue, Denies weight change Past Medical History Past Medical History: No Reported History Additional Past Medical History / Comment(s): OB history: first 3 pregnancies were a vaginal deliveries. THis is her fourth and she had had care with me. A+, abs neg, Rub Imm, RPR NR, HIV NR, Hep B neg. normal 1hr. GBS neg. baby was found to be IUGR and have polyhydramnios. Ultrasound last again this week both showed some elevated Dopplers. NSTs have been reactive. [facility] recommended delivery at 37 weeks History of Any Multi-Drug Resistant Organisms: None Reported Past Surgical History: Adenoidectomy, Tonsillectomy Past Anesthesia/Blood Transfusion Reactions: No Reported Reaction Past Psychological History: Anxiety, Depression Smoking Status: Current every day smoker Past Alcohol Use History: Occasional Additional Past Alcohol Use History / Comment(s): pt states she drinks a glass of wine here and there but she "juices" it down Past Drug Use History: Marijuana - Past Family History Mother Additional Family Medical History / Comment(s): Depression/Bipolar Father History Unknown: Yes Additional Family Medical History / Comment(s): Schizophrenia Medications and Allergies Home Medications Medication Instructions Recorded Confirmed Type Pnv No.95/Ferrous Fum/Folic AC 1 tab PO DAILY 08/13/20 07/03/22 History [ Multivitamin Tablet] Allergies Allergy/AdvReac Type Severity Reaction Status Date / Time Penicillins Allergy Rash/Hives Verified 03/25/22 08:29 Sulfa (Sulfonamide Allergy Swelling Verified 03/25/22 08:29 Antibiotics) Exam Osteopathic Statement: *. No significant issues noted on an osteopathic structural exam other than those noted in the History and Physical/Consult. Vital Signs Temp Pulse Resp BP Pulse Ox 07/03/22 06:31 97.4 F L 90 17 115/78 100 Intake and Output 07/03/22 07/03/22 07/03/22 06:59 14:59 22:59 Intake Total 2000 Output Total 700 250 Balance 1300 -250 Intake: IV 1999 Output: Urine 700 250 Straight 700 250 Other: # Voids 2 Weight 79.832 kg Heart: Regular rate and rhythm Lungs: Clear to auscultation bilaterally Abdomen: Soft, nontender Extremities: Negative Homans sign Results Result Diagrams: 07/03/22 06:35 Abnormal Lab Results - Last 24 Hours (Table) 07/03/22 Range/Units 06:35 U Marijuana (THC) Screen Detected H (NotDetected) Assessment and Plan (1) Encounter for induction of labor Current Visit: Yes Status: Acute Code(s): Z34.90 - ENCNTR FOR SUPRVSN OF NORMAL , UNSP, UNSP TRIMESTER SNOMED Code(s): 650787375 (2) IUGR (intrauterine growth restriction) Current Visit: Yes Status: Acute Code(s): VNI4614 - SNOMED Code(s): 69040218 (3) Polyhydramnios Current Visit: Yes Status: Acute Code(s): O40.9XX0 - POLYHYDRAMNIOS, UNSP TRIMESTER, NOT APPLICABLE OR UNSP SNOMED Code(s): 55429398 Plan: 1. Induction of labor with amniotomy and Pitocin 2. Anticipate normal vaginal delivery
[2022-07-03] MEDS ORDERED: diphenhydrAMINE 50 MG/ML 1 ML VIAL IVP PRN ×2 (19:14)
[2022-07-03] MEDS ORDERED: SIMETHICONE 80 MG CHEWABLE PO PRN (19:14)
[2022-07-03] MEDS ORDERED: diphenhydrAMINE 25 MG CAP PO PRN (19:14)
[2022-07-03] MEDS ORDERED: diphenhydrAMINE 50 MG CAP PO PRN (19:14)
[2022-07-03] MEDS ORDERED: MEASLES-MUMPS-RUBELLA VACC/PF 12,500 UNIT/0.5 ML VIAL SQ ONE (19:14)
[2022-07-03] MEDS ORDERED: HYDROCORTISONE 2.5% RECTAL CREAM 30 GM TUBE RECTAL PRN (19:14)
[2022-07-03] MEDS ORDERED: ACETAMINOPHEN TAB 325 MG TAB PO PRN (19:14)
[2022-07-03] MEDS ORDERED: LANOLIN CREAM 5 GM TUBE TOPICAL PRN (19:14)
[2022-07-03] MEDS ORDERED: BENZOCAINE/MENTHOL SPRAY 1 GM/SPRAY AEROSOL TOPICAL PRN (19:14)
[2022-07-03] MEDS ORDERED: ZOLPIDEM 5 MG TAB PO PRN (19:14)
--- NOTE | 2022-07-03 19:14 | P.PROBDLV ---
Vaginal Delivery Note - . Vaginal Delivery Note: 27-year-old presents at 37 weeks and 2 days for induction of labor. Her baby is IUGR and she has polyhydramnios with elevated Dopplers. heart tones are 130 with moderate variability and reactive. Cervix is 1-2 cm dilated, 70% effaced, -2 station. Pitocin was started and amniotomy performed at 7:43 AM, clear fluid noted. A few times throughout the day the Pitocin had to be shut off because she was having some prolonged variable decelerations. She ma intained moderate variability all day. After Pitocin was shut off and corrective measures were taken including oxygen and position changes and IV fluids, variables would resolve. After a few hours I did restart the Pitocin. She was feeling a lot of pressure around 1850. She was attending to breathe through contractions at 8 cm dilated, her percent effaced, and 0 station. I helped hold back the cervix for her digitally and she pushed to complete cervix at 1858. She then pushed and delivered a viable female over intact perineum under epidural anesthesia 1858. Head delivered OA, anterior shoulder delivered gentle downward guidance for by posterior shoulder and rest of body. Nose and mouth bulb suctioned, cord clamped and cut, placed mother's abdomen. Apgars 8, 9, weight pending. Placenta delivered spontaneously, intact with three-vessel cord at 1901. Of note there was a velamentous cord insertion. Vagina, cervix, and perineum were inspected. No lacerations noted. Estimated blood loss 50 mL. Mother and baby in stable condition.
[2022-07-03] MEDS: IBUPROFEN 600 MG TAB PO PRN (19:52)
[2022-07-03] MEDS ORDERED: SENNOSIDES-DOCUSATE SODIUM 1 EACH TAB PO SCH (20:00)
[2022-07-04] MEDS: IBUPROFEN 600 MG TAB PO PRN (01:19)
[2022-07-04 01:48] VITALS: RESP 17
[2022-07-04 06:01] VITALS: BP 114/79; PULSE 55; TEMP 97.4
[2022-07-04 08:12] LABS: Basophils # (A) 0.1 k/uL (0-0.2); Basophils % (A) 1 %; Eosinophils # (A) 0.4 k/uL (0-0.7); Eosinophils % (A) 3 %; HCT 37.4 % (34.0-46.0); HGB 12.2 gm/dL (11.4-16.0); Hypochromasia Slight; Lymphocytes % (A) 21 %; MCH 29.9 pg (25.0-35.0); MCHC 32.6 g/dL (31.0-37.0); MCV 91.8 fL (80.0-100.0); Mean Platelet Volume 11.5; Monocytes # (A) 0.7 k/uL (0-1.0); Monocytes % (A) 5 %; Neutrophils # (A) 10.1 k/uL (1.3-7.7); Neutrophils % (A) 70 %; Platelet Count 253 k/uL (150-450); RBC 4.08 m/uL (3.80-5.40); RDW 13.3 % (11.5-15.5); WBC 14.4 k/uL (3.8-10.6)
== END 2022-07-04 08:00 | disposition home or self-care (01) | DRG 806 ==
LOC: 4FBP 06:14
PROVIDERS: ADMIT Obstetrics & Gynecology; ATTEND Obstetrics & Gynecology
PROC: 3E033VJ Introduction of Other Hormone into Peripheral Vein, Percutaneous Approach (ICD-10-PCS; principal; 2022-07-03)
PROC: 10907ZC Drainage of Amniotic Fluid, Therapeutic from Products of Conception, Via Natural or Artificial Opening (ICD-10-PCS; principal; 2022-07-03)
PROC: 3E0134Z Introduction of Serum, Toxoid and Vaccine into Subcutaneous Tissue, Percutaneous Approach (ICD-10-PCS; principal; 2022-07-03)
PROC: 10E0XZZ Delivery of Products of Conception, External Approach (ICD-10-PCS; principal; 2022-07-03)
DX: O36.5930 Maternal care for other known or suspected poor fetal growth, third trimester, not applicable or unspecified (principal); O99.324 Drug use complicating childbirth; F12.90 Cannabis use, unspecified, uncomplicated; O40.3XX0 Polyhydramnios, third trimester, not applicable or unspecified; O76 Abnormality in fetal heart rate and rhythm complicating labor and delivery; O99.334 Smoking (tobacco) complicating childbirth; F17.200 Nicotine dependence, unspecified, uncomplicated; O99.344 Other mental disorders complicating childbirth; F41.9 Anxiety disorder, unspecified; F32.A Depression, unspecified; O43.123 Velamentous insertion of umbilical cord, third trimester; Z88.0 Allergy status to penicillin; Z88.2 Allergy status to sulfonamides; Z23 Encounter for immunization; Z3A.37 37 weeks gestation of pregnancy; Z37.0 Single live birth
CPT/HCPCS: 80306; 85025; 86850; 86900; 86901; 88307

== ENCOUNTER 2024-09-05 16:09 | Emergency (ER) | payer OTHER ==
[2024-09-05 16:40] VITALS: RESP 18
--- NOTE | 2024-09-05 17:23 | ED ---
Extremity Problem HPI - General Chief complaint: Extremity Problem,Nontraumatic Stated complaint: hand pain-39 wks preg Time Seen by Provider: 09/05/24 17:17 Source: patient, RN notes reviewed Mode of arrival: ambulatory Limitations: no limitations - History of Present Illness Initial comments: 29-year-old female at 39 weeks gestation presenting for bilateral hand pain x 6 months. States over the course of her she has had worsening pain, swelling, and tingling in both hands. She does have a history of carpal tunnel syndrome and states she has upcoming appointment with orthopedics. Denies trauma or injury. Denies complications with the such as preeclampsia. Denies leg swelling. She follows with Dr. Rai. - Related Data Home Medications Medication Instructions Recorded Confirmed Pnv No.95/Ferrous Fum/Folic AC 1 tab PO DAILY 08/13/20 07/03/22 [ Multivitamin Tablet] Allergies Allergy/AdvReac Type Severity Reaction Status Date / Time Penicillins Allergy Rash/Hives Verified 09/05/24 16:36 Sulfa (Sulfonamide Allergy Swelling Verified 09/05/24 16:36 Antibiotics) Review of Systems ROS Statement: Those systems with pertinent positive or pertinent negative responses have been documented in the HPI. ROS Other: All systems not noted in ROS Statement are negative. Past Medical History Past Medical History: No Reported History Additional Past Medical History / Comment(s): OB history: first 3 pregnancies were a vaginal deliveries. THis is her fourth and she had had care with me. A+, abs neg, Rub Imm, RPR NR, HIV NR, Hep B neg. normal 1hr. GBS neg. baby was found to be IUGR and have polyhydramnios. Ultrasound last again this week both showed some elevated Dopplers. NSTs have been reactive. [facility] recommended delivery at 37 weeks History of Any Multi-Drug Resistant Organisms: None Reported Past Surgical History: Adenoidectomy, Tonsillectomy Past Anesthesia/Blood Transfusion Reactions: No Reported Reaction Past Psychological History: Anxiety, Depression Smoking Status: Current every day smoker Past Alcohol Use History: Occasional Past Drug Use History: Marijuana - Past Family History Mother Additional Family Medical History / Comment(s): Depression/Bipolar Father History Unknown: Yes Additional Family Medical History / Comment(s): Schizophrenia General Exam Limitations: no limitations General appearance: alert, in no apparent distress Head exam: Present: atraumatic, normocephalic, normal inspection Eye exam: Present: normal appearance, PERRL, EOMI. Absent: scleral icterus, conjunctival injection, periorbital swelling Respiratory exam: Present: normal lung sounds bilaterally. Absent: respiratory distress, wheezes, rales, rhonchi, stridor Cardiovascular Exam: Present: regular rate, normal rhythm, normal heart sounds. Absent: systolic murmur, diastolic murmur, rubs, gallop, clicks GI/Abdominal exam: Present: soft, normal bowel sounds. Absent: distended, tenderness, guarding, rebound, rigid Extremities exam: Present: normal inspection, full ROM, normal capillary refill, other (No notable edema, erythema, or reproducible tenderness in bilateral upper and lower extremities). Absent: tenderness, pedal edema, joint swelling, calf tenderness Neurological exam: Present: alert, oriented X3 Psychiatric exam: Present: normal affect, normal mood Skin exam: Present: warm, dry, intact, normal color. Absent: rash Course Vital Signs 09/05/24 16:37 Temperature 97.4 F L Pulse Rate 83 Respiratory 18 Rate Blood Pressure 122/81 O2 Sat by Pulse 99 Oximetry Medical Decision Making - Medical Decision Making Was pt. sent in by a medical professional or institution (, PA, BANK ACCOUNTANT, urgent care, hospital, or detention...) When possible be specific @ -No Did you speak to anyone other than the patient for history (EMS, parent, family, police, friend...)? What history was obtained from this source @ -No Did you review nursing and triage notes (agree or disagree)? Why? @ -I reviewed and agree with nursing and triage notes Were old charts reviewed (outside hosp., previous admission, EMS record, old EKG, old radiological studies, urgent care reports/EKG's, detention records)? Report findings @ -No old charts were reviewed Differential Diagnosis (chest pain, altered mental status, abdominal pain women, abdominal pain men, vaginal bleeding, weakness, fever, dyspnea, syncope, headache, dizziness, GI bleed, back pain, seizure, CVA, palpatations, mental health, musculoskeletal)? @ -Differential Musculoskeletal Muscular strain, contusion, ligament sprain, fracture, arthritis, septic arthritis, bursitis, cellulitis, muscle spasm, nerve compression, DVT, arterial occlusion, herpes zoster, electrolyte abnormality, tumor.... This is not meant to be in all inclusive list EKG interpreted by me (3pts min.). @ -None X-rays interpreted by me (1pt min.). @ -None done CT interpreted by me (1pt min.). @ -None done U/S interpreted by me (1pt. min.). @ -None done What testing was considered but not performed or refused? (CT, X-rays, U/S, labs)? Why? @ -Urinalysis ordered however patient declined What meds were considered but not given or refused? Why? @ -None Did you discuss the management of the patient with other professionals (professionals i.e. Dr., PA, BANK ACCOUNTANT, lab, RT, psych nurse, social insurance analyst, education site manager, teacher, patrol community service officer, caseworker)? Give summary @ -No Was smoking cessation discussed for >3mins.? @ -No Was critical care preformed (if so, how long)? @ -No Were there social determinants of health that impacted care today? How? (Homelessness, low income, unemployed, alcoholism, drug addiction, transportation, low edu. Level, literacy, decrease access to med. care, fpc, rehab)? @ -No Was there de-escalation of care discussed even if they declined (Discuss DNR or withdrawal of care, Hospice)? DNR status @ -No What co-morbidities impacted this encounter? (DM, HTN, Smoking, COPD, CAD, Cancer, CVA, ARF, Chemo, Hep., AIDS, mental health diagnosis, sleep apnea, morbid obesity)? @ -None Was patient admitted / discharged? Hospital course, mention meds given and route, prescriptions, significant lab abnormalities, going to OR and other pertinent info. @ -Discharge. This is a 29-year-old female at 39 weeks gestation presenting with bilateral hand pain x 6 months. Denies trauma or injury. Neurovascular intact. Patient is normotensive, vital signs within acceptable limits. No red flag symptoms. Neurovascularly intact, no notable edema to upper or lower extremities bilaterally. Patient declined urinalysis. Discussed with patient there are no signs of emergent etiology causing symptoms today. Encouraged to follow-up with OB and PCP regarding symptoms. Appropriate return precautions discussed. Case was discussed with my ED attending Dr. Rebolledo Undiagnosed new problem with uncertain prognosis? @ -No Drug Therapy requiring intensive monitoring for toxicity (Heparin, Nitro, Insulin, Cardizem)? @ -No Were any procedures done? @ -No Diagnosis/symptom? @ -Bilateral hand pain Acute, or Chronic, or Acute on Chronic? @ -Chronic Uncomplicated (without systemic symptoms) or Complicated (systemic symptoms)? @ -Uncomplicated Side effects of treatment? @ -No Exacerbation, Progression, or Severe Exacerbation? @ -No Poses a threat to life or bodily function? How? (Chest pain, [place], [place], pneumonia, PE, COPD, DKA, ARF, appy, cholecystitis, CVA, Diverticulitis, Homicidal, Suicidal, threat to staff... and all critical care pts) @ -No Disposition Clinical Impression: Bilateral hand pain Disposition: HOME SELF-CARE Condition: Stable Additional Instructions: Follow-up with OB and PCP as discussed. Please return to the Emergency Department if symptoms worsen or any other concerns. Is patient prescribed a controlled substance at d/c from ED?: No Referrals: None,Stated [Primary Care Provider] - 1-2 days Time of Disposition: 17:22
[2024-09-05 17:31] VITALS: BP 128/81; PULSE 80; TEMP 97.7
== END 2024-09-05 17:29 | disposition home or self-care (01) ==
LOC: EC 16:09
DX: O99.891 Other specified diseases and conditions complicating pregnancy (principal); M79.642 Pain in left hand; M79.641 Pain in right hand; O99.333 Smoking (tobacco) complicating pregnancy, third trimester; F17.290 Nicotine dependence, other tobacco product, uncomplicated; Z88.0 Allergy status to penicillin; Z88.2 Allergy status to sulfonamides; Z3A.39 39 weeks gestation of pregnancy
CPT/HCPCS: 99283

== ENCOUNTER 2024-09-07 06:50 | Inpatient (IN) | payer OTHER ==
[2024-09-07] MEDS ORDERED: miSOPROStoL 200 MCG TAB PO PRN (07:57)
[2024-09-07] MEDS ORDERED: TRANEXAMIC 1,000 MG/100ML-NACL 1,000 MG in EMPTY BAG 1 BAG IV PRN (07:57)
[2024-09-07] MEDS ORDERED: CARBOPROST TROMETHAMINE 250 MCG/ML 1 ML AMP IM PRN (07:57)
[2024-09-07] MEDS ORDERED: miSOPROStoL 200 MCG TAB RECTAL PRN (07:57)
[2024-09-07] MEDS ORDERED: METHYLERGONOVINE 0.2 MG/ML 1 ML AMP IM PRN (07:57)
[2024-09-07] MEDS: LIDOCAINE 0.5% (PF) 5 MG/ML (50 ML SDV) SQ PRN (08:04)
[2024-09-07] MEDS ORDERED: diphenhydrAMINE 50 MG/ML 1 ML VIAL IVP PRN ×2 (08:05)
[2024-09-07] MEDS ORDERED: LANOLIN CREAM 1 GM TUBE TOPICAL PRN (08:05)
[2024-09-07] MEDS ORDERED: SIMETHICONE 80 MG CHEWABLE PO PRN (08:05)
[2024-09-07] MEDS ORDERED: diphenhydrAMINE 25 MG CAP PO PRN (08:05)
[2024-09-07] MEDS: OXYTOCIN 10 UNIT/ML 1 ML VIAL IM PRN (08:05)
[2024-09-07] MEDS ORDERED: ZOLPIDEM 5 MG TAB PO PRN (08:05)
[2024-09-07] MEDS ORDERED: diphenhydrAMINE 50 MG CAP PO PRN (08:05)
[2024-09-07] MEDS: BENZOCAINE/MENTHOL SPRAY 1 GM/SPRAY AEROSOL TOPICAL PRN (09:07)
[2024-09-07 09:09] LABS: Basophils % (A) 0 %; Eosinophils # (A) 0.2 k/uL (0-0.7); Eosinophils % (A) 1 %; HCT 35.7 % (34.0-46.0); HGB 11.6 gm/dL (11.4-16.0); Hypochromasia Slight; Lymphocytes # (A) 2.2 k/uL (1.0-4.8); Lymphocytes % (A) 16 %; MCH 28.5 pg (25.0-35.0); MCHC 32.6 g/dL (31.0-37.0); MCV 87.5 fL (80.0-100.0); Mean Platelet Volume 13.2; Monocytes # (A) 0.4 k/uL (0-1.0); Monocytes % (A) 3 %; Neutrophils # (A) 10.6 k/uL (1.3-7.7); Neutrophils % (A) 78 %; RBC 4.08 m/uL (3.80-5.40); RDW 14.2 % (11.5-15.5); WBC 13.6 k/uL (3.8-10.6)
[2024-09-07 10:00] LABS: Platelet Count 165 k/uL (150-450)
--- NOTE | 2024-09-07 11:17 | P.HPOB ---
History of Present Illness H&P Date: 09/07/24 Chief Complaint: IUP at 39-3/7 weeks, active labor 29-year-old 5 para 4-0-0-3 that presented to labor and delivery with complaints of regular painful contractions. Patient states she began reji around 4 AM. Patient denies loss of fluid or vaginal bleeding. Patient denies complications and states she has been receiving routine care with Dr. Rai. Patient was noted to be 8 to 9 cm upon presentation. On blood work this patient has a blood type of a positive, rubella status immune, hepatitis B surface engine negative, HIV negative, RPR is nonreactive, group beta strep culture was positive. Review of Systems Constitutional: Denies chills, Denies fatigue, Denies fever Ears, nose, mouth and throat: Denies headache Cardiovascular: Reports leg edema Respiratory: Denies dyspnea Gastrointestinal: Denies nausea, Denies vomiting Genitourinary: Reports Past Medical History Past Medical History: No Reported History Additional Past Medical History / Comment(s): OB history: first 3 pregnancies were a vaginal deliveries. THis is her fourth and she had had care with co. A+, abs neg, Rub Imm, RPR NR, HIV NR, Hep B neg. normal 1hr. GBS neg. baby was found to be IUGR and have polyhydramnios. Ultrasound last again this week both showed some elevated Dopplers. NSTs have been reactive. [facility] recommended delivery at 37 weeks History of Any Multi-Drug Resistant Organisms: None Reported Past Surgical History: Adenoidectomy, Tonsillectomy Past Anesthesia/Blood Transfusion Reactions: No Reported Reaction Past Psychological History: No Psychological Hx Reported Smoking Status: Former smoker Past Alcohol Use History: None Reported Past Drug Use History: None Reported - Past Family History Mother Additional Family Medical History / Comment(s): Depression/Bipolar Father History Unknown: Yes Additional Family Medical History / Comment(s): Schizophrenia Medications and Allergies Home Medications Medication Instructions Recorded Confirmed Type Pnv No.95/Ferrous Fum/Folic AC 1 tab PO DAILY 08/13/20 09/07/24 History [ Multivitamin Tablet] Allergies Allergy/AdvReac Type Severity Reaction Status Date / Time Penicillins Allergy Rash/Hives Verified 09/07/24 07:50 Sulfa (Sulfonamide Allergy Swelling Verified 09/07/24 07:50 Antibiotics) Exam Osteopathic Statement: *. No significant issues noted on an osteopathic structural exam other than those noted in the History and Physical/Consult. Vital Signs Temp Pulse Resp BP 09/07/24 09:34 97.6 F 74 16 131/75 09/07/24 09:20 87 16 131/75 09/07/24 09:00 80 16 154/75 09/07/24 08:45 80 16 122/69 09/07/24 08:30 76 16 136/79 09/07/24 08:15 64 16 136/79 09/07/24 08:00 83 16 131/54 09/07/24 07:50 97.9 F 82 16 123/58 09/07/24 07:45 82 16 123/58 09/07/24 07:30 97.9 F 88 16 121/63 Intake and Output 09/06/24 09/07/24 09/07/24 22:59 06:59 14:59 Output Total 200 Balance -200 Output: Output, Quantitative 200 Blood Loss Other: # Voids 1 Weight 92.986 kg Targeted physical exam is performed this date General Is well-nourished well- developed female in active labor, breathing is nonlabored, abdomen is n oted to be gravid, heart tones were noted to be category 1 and she was reji every 2 to 3 minutes. On cervical exam she was completely dilated with a bulging bag of water. Amniotomy was performed and meconium stained fluid was appreciated. Results Result Diagrams: 09/07/24 08:58 Abnormal Lab Results - Last 24 Hours (Table) 09/07/24 Range/Units 08:58 WBC 13.6 H (3.8-10.6) k/uL Neutrophils # 10.6 H (1.3-7.7) k/uL Assessment and Plan (1) Term Current Visit: Yes Status: Acute Code(s): Z34.90 - ENCNTR FOR SUPRVSN OF NORMAL , UNSP, UNSP TRIMESTER SNOMED Code(s): 16965380 (2) Active labor Current Visit: Yes Status: Acute Code(s): ZYW9751 - SNOMED Code(s): 871909683 (3) Meconium stained amniotic fluid, delivered, current hospitalization Current Visit: Yes Status: Acute Code(s): O77.0 - LABOR AND DELIVERY COMPLICATED BY MECONIUM IN AMNIOTIC FLUID SNOMED Code(s): 514310779 Plan: 29-year-old 5 para 4-0-0-3, last around 7 m onths. Patient is admitted and amniotomy was performed. Patient will begin pushing, anticipate spontaneous vaginal delivery.
--- NOTE | 2024-09-07 11:20 | P.PROBDLV ---
Vaginal Delivery Note - . Vaginal Delivery Note: Viable female delivered at that 718, weight of 9 pounds 11 ounces, Apgars of 7 and 9 at 1 and 5 minutes respectively. 29-year-old 5 para 4-0-0-3 at 39-3/7 weeks that presents to labor and delivery in active labor. Patient is admitted and amniotomy was performed. Patient was noted to be completely dilated with meconium stained fluid. Patient began pushing, with excellent maternal effort patient had delivery of the head shoulder still show was then diagnosed and posterior arm was delivered after Griselda and suprapubic pressure failed to relieve the shoulder dystocia. was then delivered without difficulty after posterior arm was delivered. Total time of shoulder dystocia 30 to 45 seconds. The umbilical cord was doubly clamped and cut. Spontaneous cry was noted at . Placenta was delivered spontaneously intact with a three-vessel cord being noted. Infant was handed off to waiting RN. On inspection the patient's vaginal vault a first- degree vaginal/perineal laceration was appreciated. This was injected with lidocaine and repaired with a finger of 8 suture of 3-0 Rapide. Uterus was noted to be firm below the umbilicus. IM Pitocin was given as her IV went subcu during labor. All counts were noted to be correct x 2. Patient and tolerated delivery well and are resting comfortably.
[2024-09-07] MEDS: ACETAMINOPHEN TAB 500 MG TAB PO PRN (14:43)
[2024-09-07] MEDS: IBUPROFEN 800 MG TAB PO PRN (20:27)
[2024-09-07] MEDS: SENNOSIDES-DOCUSATE SODIUM 1 EACH TAB PO SCH (21:20)
[2024-09-08 05:22] LABS: Basophils # (A) 0.1 k/uL (0-0.2); Basophils % (A) 0 %; Eosinophils # (A) 0.3 k/uL (0-0.7); Eosinophils % (A) 2 %; HCT 33.2 % (34.0-46.0); HGB 11.3 gm/dL (11.4-16.0); Hypochromasia Slight; Lymphocytes % (A) 31 %; MCH 29.5 pg (25.0-35.0); MCHC 33.9 g/dL (31.0-37.0); MCV 87.1 fL (80.0-100.0); Mean Platelet Volume 12.7; Monocytes # (A) 0.6 k/uL (0-1.0); Monocytes % (A) 5 %; Neutrophils # (A) 7.6 k/uL (1.3-7.7); Neutrophils % (A) 60 %; Platelet Count 174 k/uL (150-450); RBC 3.81 m/uL (3.80-5.40); WBC 12.8 k/uL (3.8-10.6)
--- NOTE | 2024-09-08 10:40 | P.DS ---
Providers Date of admission: 09/07/24 06:59 Expected date of discharge: 09/08/24 Attending physician: Brooklyn Rai Primary care physician: Stated None - Discharge Diagnosis(es) (1) Term Current Visit: Yes Status: Acute (2) Active labor Current Visit: Yes Status: Acute (3) Meconium stained amniotic fluid, delivered, current hospitalization Current Visit: Yes Status: Acute (4) Status post vaginal delivery Current Visit: Yes Status: Acute (5) Obstetrical laceration Current Visit: Yes Status: Acute Hospital Course: 29-year-old 5 now para 5 that presented to labor and delivery in active labor on 09/07. Patient was receiving routine care which she states has been essentially uncomplicated. For full details on the patient please the dictated history and physical. Patient was admitted to labor and delivery and underwent a normal spontaneous vaginal delivery of a viable female at 718, weight of 9 pounds 11 ounces, shoulder dystocia was noted at delivery reduced with delivery of the posterior shoulder. has been doing well, patient was GBS positive but delivered precipitously. Awaiting CBC and blood culture on per pediatric recommendations Patient's post course has been uneventful. She is ambulating and voiding without difficulty. She is tolerating regular diet without nausea or vomiting. States her pain is well-controlled. She denies concerns. She is breast-feeding without difficulty lochia is noted to be minimal to moderate. Patient Condition at Discharge: Good Plan - Discharge Summary New Discharge Prescriptions: No Action Pnv No.95/Ferrous Fum/Folic AC [ Multivitamin Tablet] 1 tab PO DAILY Discharge Medication List Pnv No.95/Ferrous Fum/Folic AC [ Multivitamin Tablet] 1 tab PO DAILY 08/13/20 [History] Follow up Appointment(s)/Referral(s): Brooklyn Rai DO [Doctor of Osteopathic Medicine] - 1 Week Patient Instructions/Handouts: Vaginal Delivery (DC), Vaginal Delivery (GEN) Activity/Diet/Wound Care/Special Instructions: No tub baths or intercourse until 6 weeks post . [id number] ibup rofen 600 mg or 3 tablets every 6 hours as needed for pain. Routine check with Dr. Rai at 6 weeks. Discharge Disposition: HOME SELF-CARE
[2024-09-09 08:48] VITALS: BP 134/87; PULSE 80; RESP 14; TEMP 98.4
--- NOTE | 2024-09-09 09:35 | P.PNOBGVD ---
Subjective - Subjective Principal diagnosis: day 2, normal spontaneous vaginal delivery Interval history: Patient has done well . She is frustrated that she has had to stay secondary to baby reasons. Pediatrics was concerned given group beta strep positive culture and nontreatment. Patient presented to labor and delivery in active labor 8 to 9 cm. Rupture of membranes was preformed and baby was delivered soon afterwards. Will await pediatrics recommendations regarding care. From an obstetric standpoint she is stable for discharge. Patient reports: Reports appetite normal, Reports voiding normally, Reports pain well controlled, Reports ambulating normally : doing well (Defer to pediatrics for plan of care) Objective - Latest Vital Signs Latest vital signs: Vital Signs Temp Pulse Resp BP Pulse Ox 09/09/24 08:00 98.4 F 80 14 134/87 09/08/24 23:55 98 F 78 17 130/74 98 09/08/24 16:00 98.0 F 95 16 138/70 98 Intake and Output 09/08/24 09/09/24 09/09/24 22:59 06:59 14:59 Other: # Voids 1 3 2 - Exam Extremities: Present: normal, edema Assessment and Plan (1) Term Current Visit: Yes Status: Acute Code(s): Z34.90 - ENCNTR FOR SUPRVSN OF NORMAL , UNSP, UNSP TRIMESTER SNOMED Code(s): 78226765 (2) Active labor Current Visit: Yes Status: Acute Code(s): GDM7074 - SNOMED Code(s): 727431539 (3) Meconium stained amniotic fluid, delivered, current hospitalization Current Visit: Yes Status: Acute Code(s): O77.0 - LABOR AND DELIVERY COMPLICATED BY MECONIUM IN AMNIOTIC FLUID SNOMED Code(s): 387995274 (4) Status post vaginal delivery Current Visit: Yes Status: Acute Code(s): RPR0525 - SNOMED Code(s): 674818817 (5) Obstetrical laceration Current Visit: Yes Status: Acute Code(s): O71.9 - OBSTETRIC TRAUMA, UNSPECIFIED SNOMED Code(s): 638236555 Plan: 29-year-old G5 now P5 status post normal spontaneous vaginal delivery. Patient was discharged yesterday but as infant stated she did wish to stay. Discharge instructions were reviewed with patient yesterday. Patient is to call the office to make a routine visit with Dr. Rai. Should she have any concerns prior to this appointment she is to call the office.
== END 2024-09-09 10:31 | disposition home or self-care (01) | DRG 560 ==
LOC: FBPOP 06:50 → 4FBP 06:59
PROVIDERS: ADMIT Obstetrics & Gynecology Obstetrics; ATTEND Obstetrics & Gynecology
PROC: 10E0XZZ Delivery of Products of Conception, External Approach (ICD-10-PCS; principal; 2024-09-07)
PROC: 0HQ9XZZ Repair Perineum Skin, External Approach (ICD-10-PCS; 2024-09-07)
PROC: 10907ZC Drainage of Amniotic Fluid, Therapeutic from Products of Conception, Via Natural or Artificial Opening (ICD-10-PCS; 2024-09-07)
DX: O99.824 Streptococcus B carrier state complicating childbirth (principal); O77.0 Labor and delivery complicated by meconium in amniotic fluid; O66.0 Obstructed labor due to shoulder dystocia; O62.3 Precipitate labor; O70.0 First degree perineal laceration during delivery; Z37.0 Single live birth; Z3A.39 39 weeks gestation of pregnancy; Z87.891 Personal history of nicotine dependence; Z88.0 Allergy status to penicillin; Z88.2 Allergy status to sulfonamides; Z28.21 Immunization not carried out because of patient refusal; Z28.311 Partially vaccinated for COVID-19
CPT/HCPCS: 85025; 86850; 86900; 86901